=== PATIENT | female | born 1950 | race Caucasian/White ===

== ENCOUNTER 2018-07-23 17:50 | Inpatient (IN) | payer BC, MEDICARE, SELFPAY ==
[2018-07-23] VITALS (10 sets, daily range): BP systolic 149–182; BP diastolic 78–98; PULSE 66–86; RESP 13–23; TEMP 36.2–36.6; O2SAT 97–100; BMI 37.3; BMI 36.8
--- NOTE | 2018-07-23 18:08 | EKG12_ITS ---
Test Reason : GEN ILL Blood Pressure : / mmHG Vent. Rate : 061 BPM Atrial Rate : 061 BPM P-R Int : 134 ms QRS Dur : 090 ms QT Int : 418 ms P-R-T Axes : 008 -27 -06 degrees QTc Int : 420 ms Normal sinus rhythm Moderate voltage criteria for LVH, may be normal variant Borderline ECG Confirmed by HAKEEM ORTEGA, YULY ([id number]), supervising editor trailer SHADE GALLO ([id number]) on 07/26/2018 2:54:46 PM Referred By: MILAN Confirmed By:YULY PALACIO MD
--- NOTE | 2018-07-23 18:08 | CT_ITS ---
STUDY: CT BRAIN WITHOUT CONTRAST REASON FOR EXAM: Female, 67 years old. Difficulty speaking with ringing in ears. RADIATION DOSAGE (If Supplied By Facility): CTDIvol = ( 44.99 ) mGy, DLP = ( 796.11 ) mGycm TECHNIQUE: Transaxial CT imaging of the brain was performed without administration of intravenous contrast material. Multiplanar reformations are submitted for interpretation. Individualized dose optimization techniques were used for this CT. COMPARISON: Prior comparison studies are not available for review at this time. FINDINGS: Normal soft tissue structures. Normal calvarium. There is mild cerebral atrophy with widening of the extra-axial spaces and ventricular dilatation. There are areas of decreased attenuation within the white matter tracts of the supratentorial brain, consistent with microvascular disease changes. Normal basal ganglia and thalami. Normal brainstem. There is mild cerebellar atrophy. There is no intracranial hemorrhage. There is mild atherosclerotic calcification of the intracranial arteries. Normal visualized paranasal sinuses. CT/Brain/Head without Contrast IMPRESSION: 1. Chronic involutional changes of the brain. 2. No CT evidence of acute intracranial hemorrhage. Electronically Signed: Ericka Blum MD at 20:39 EST , Service support ,
--- NOTE | 2018-07-23 18:10 | ED.VISSUMM ---
- ER Visit Summary Date of Service: 07/23/18 Chief Complaint: Trouble with her speech History of Present Illness: The patient is a 67 F past medical history of sciatica. Patient never had a stroke or TIA. Denies any cardiac history. She is speaking on the phone with her son. She states she had trouble putting her words together. Trouble finding words. There was not slurred speech just trouble facing the right words together. She stated this came on suddenly. And has since resolved. It lasted less than 30 minutes. She denies any headache. No recent head trauma. She denies any weakness to her arms or legs. No numbness or tingling. No headache. She is on no blood thinners. She denies having prior symptoms like this before. Physical Examination: Older female no acute distress. Vital signs are stable she is afebrile. H EENT exam atraumatic. There is round reactive light. Extra motions are intact. No palsy. No facial numbness or weakness. Normal smile. No facial droop. Neck nontender. No bruits appreciated. Lungs clear to auscultation bilaterally. Heart regular rate and rhythm rate about 70. Abdomen soft and nontender. Normal bowel sounds no peritoneal signs. She is moving all 4 extremities. They are neurovascularly intact. She has equal symmetrical barn manager strength. Equal symmetrical dorsi and plantar flexion. Fingertip to nose is within normal limits. Neurologically she is awake alert with no focal motor or sensory deficits. Currently an NIH of 0. She has normal speech at the current time. Test Results: Stroke workup. CBC normal. Chemistry normal. Troponin normal. Sinus rhythm rate of 61 with no acute abnormality. Chest x-ray shows a normal cardiac silhouette mediastinum read both by myself and radiologist. CT of the brain I have reviewed and see no acute abnormality. There is no bleed. We are awaiting formal radiology interpretation. Emergency Department Course and Treatment: Patient's initial exam is normal. Her neurological symptoms have resolved. On repeat exam at 2030 p.m. patient is doing well. She has had no recurrent symptoms. Her neurologic exam remains normal. I went over all test results with both her and her significant other at bedside. She is agreeable to admission and further evaluation. Treatment Plan: I will speak to the hospitalist about admission. Disposition: Admission Impression: Acute transient dysarthria (TIA) This note was generated with Dragon dictation software. It may contain incorrect words, spelling, and punctuation that were not noted in review of the chart prior to signing ED Disposition - Plan for ED Patient: Chief Complaint: Neuro S/Sx Referrals: Tenzin Wise MD [Primary Care Provider] -
--- NOTE | 2018-07-23 18:13 | ED.DCSUM_ITS ---
- ER Visit Summary Date of Service: 07/23/18 Chief Complaint: Trouble with her speech History of Present Illness: The patient is a 67 F past medical history of sciatica. Patient never had a stroke or TIA. Denies any cardiac history. She is speaking on the phone with her son. She states she had trouble putting her words together. Trouble finding words. There was not slurred speech just trouble facing the right words together. She stated this came on suddenly. And has since resolved. It lasted less than 30 minutes. She denies any headache. No recent head trauma. She denies any weakness to her arms or legs. No numbness or tingling. No headache. She is on no blood thinners. She denies samuel ving prior symptoms like this before. Physical Examination: Older female no acute distress. Vital signs are stable she is afebrile. H EENT exam atraumatic. There is round reactive light. Extra motions are intact. No palsy. No facial numbness or weakness. Normal smile. No facial droop. Neck nontender. No bruits appreciated. Lungs clear to auscultation bilaterally. Heart regular rate and rhythm rate about 70. Abdomen soft and nontender. Normal bowel sounds no peritoneal signs. She is moving all 4 extremities. They are neurovascularly intact. She has equal symmetrical recruitment internship strength. Equal symmetrical dorsi and plantar flexion. Fingertip to nose is within normal limits. Neurologically she is awake alert with no focal motor or sensory deficits. Currently an NIH of 0. She has normal speech at the current time. Test Results: Stroke workup. CBC normal. Chemistry normal. Troponin normal. Sinus rhythm rate of 61 with no acute abnormality. Chest x-ray shows a normal cardiac silhouette mediastinum read both by myself and radiologist. CT of the brain I have reviewed and see no acute abnormality. There is no bleed. We are awaiting formal radiology interpretation. Emergency Department Course and Treatment: Patient's initial exam is normal. Her neurological symptoms have resolved. On repeat exam at 2030 p.m. patient is doing well. She has had no recurrent symptoms. Her neurologic exam remains normal. I went over all test results with both her and her significant other at bedside. She is agreeable to admission and further evaluation. Treatment Plan: I will speak to the hospitalist about admission. Disposition: Admission Impression: Acute transient dysarthria (TIA) This note was generated with itsDapper dictation software. It may contain incorrect words, spelling, and punctuation that were not noted in review of the chart prior to signing ED Disposition - Plan for ED Patient: Chief Complaint: Neuro S/Sx Referrals: Tenzin Wise MD [Primary Care Provider] -
--- NOTE | 2018-07-23 18:20 | RAD_ITS ---
STUDY: X-RAY CHEST REASON FOR EXAM: Female, 67 years old. Cerebrovascular accident workup. TECHNIQUE: Single frontal view of the chest. COMPARISON: None. FINDINGS: A right subclavian catheter is present and the tip cannot be visualized because of underpenetration. The lungs are hyperexpanded with bullous disease in both apices. There is no demonstrated pleural abnormality. There is borderline cardiomegaly. Normal mediastinum and karen. Normal visualized pulmonary arteries. Normal visualized aortic arch and descending thoracic aorta. Normal visualized thoracic spine. Normal visualized ribs, clavicles, and shoulders. There is no demonstrated abnormality of the visualized soft tissue structures of the upper abdomen. RAD/Chest 1 View IMPRESSION: No active or acute cardiopulmonary disease. Electronically Signed: Eliceo Shane MD at 20:18 EST , Service support ,
[2018-07-23 18:24] LABS: Absolute Lymphocyte Count 2.14 X10^3/ul (0.83-4.51); Absolute Neutrophil Count 3.9 X10^3/uL (2.0-7.7); Basophil# 0.02 X10^3/uL; Basophil% 0.3 % (0-1); Eosinophil# 0.08 X10^3/uL; Eosinophils% 1.2 % (0-5); Hematocrit 40.5 % (37-47); Hemoglobin 13.5 g/dl (12.0-15.0); Lymphocyte # 2.14 X10^3/ul (4.0); Lymphocyte % 32.5 % (19-41); Mean Corp Hgb Conc 33.3 g/gl (32-36); Mean Corpuscular Volume 92.9 fL (81-99); Mean Platelet Vol. 10.9 fl (6.2-12.0); Monocyte% 6.1 % (0-10); Neutrophil # 3.94 X10^3/uL (2.7-7.7); Neutrophil % 59.7 % (47-70); Platelet Count 245 K/mm3 (150-450); RBC Distribution Width CV 13.2 % (11.6-14.6); RBC Distribution Width SD 43.7 fl (35.1-43.9); Red Blood Count 4.36 M/mm3 (4.2-5.4); White Blood Count 6.6 K/mm3 (4.4-11.0)
[2018-07-23 18:27] LABS: POSITIVE COUNT NO; POSITIVE DIFFERENTIAL NO; POSITIVE MORPHOLOGY NO
[2018-07-23 18:40] LABS: Anion Gap 6 (5-15); BUN 21 mg/dL (7-18); Calcium,Total 9.4 mg/dL (8.5-10.1); Chloride 105 mmol/L (98-107); Creatinine, Serum 0.78 mg/dL (0.55-1.02); EST Glomerular Filtration Rate 79 mL/min (>60); Est Glom Filt Rate - Afr Amer 95 mL/min (>60); Estimated Creatinine Clearance 53.09 ml/min; Glucose 93 mg/dL (74-106); Potassium 4.4 mmol/L (3.5-5.1); Sodium Level 139 mmol/L (136-145)
[2018-07-23 19:01] LABS: Bedside Glucose 81 mg/dL (70-110)
[2018-07-23 20:24] LABS: Prothrombin Time (Protime)PT. 12.9 SECONDS (11.7-14.9)
[2018-07-23 20:25] LABS: Partial Thromboplast Time 25.5 Seconds (24.1-36.2)
--- NOTE | 2018-07-23 20:32 | HP.PCM_ITS ---
Problem List (1) Malignant neoplasm of colon Status: Chronic (2) Depressive disorder Status: Chronic (3) Stroke-like episode Status: Acute History of Present Illness Date of Admission: 07/23/18 Chief Complaint: word finding difficulties The patient is a 67 year old F with a significant history of depressive disorder; sciatica; colon cancer status post colectomy; multiple orthopedic surgeries who presented with 45 minutes of word finding difficulty. The patient was talking on the phone with her son who is in [place]. Patient noticed that she was having word finding difficulties and nonsensical talk. This lasted for about 45 minutes. Subsequently patient presented to the emergency department. By the time presented to the emergency department her symptoms has resolved. Patient was particularly scared about her symptoms since her mother from a massive stroke. Also she reports that her ears felt clogged and she had ringing in her ears. Notably family and patient reported that a couple of months ago patient was exposed to fire arms and she developed loss of hearing. Associated with her symptoms was lightheadedness. Past Medical History Past Medical History (Chronic Problems): Chronic Problems Malignant neoplasm of colon (Chronic) HTN (hypertension) (Chronic) Esophageal reflux (Chronic) Type II diabetes mellitus, uncontrolled (Chronic) Depressive disorder (Chronic) Allergies No Known Allergies Allergy (Verified 07/23/18 17:51) Home Medications: Ambulatory Orders Medication Instructions Recorded Ibuprofen [Motrin] 400 mg PO BID 07/23/18 Melatonin 10 mg PO QHS 07/23/18 traZODone [Desyrel] 100 mg PO QHS 07/23/18 Surgical History: colectomy, total knee arthroplasty - Bilateral, - - Right elbow surgery; and right ankle fusion Lives: Spouse/ Significant Other Smoking Status: Former smoker Alcohol: Occasional - She drinks about 2 glasses of wine every day; she denies that she would go into withdrawal if she does not drink. - *Family History Maternal Family History: Family History (Last Updated 07/23/18 @ 21:18 by Morro Christina MD) Mother CVA (cerebral vascular accident) Father Hypertension Prostate cancer Review of Systems Constitutional: Denies: Chills, Fever, Weight Change HEENT: Denies: Head Aches, Sinus Congestion, Sinus Drainage Cardiovascular: Denies: Chest Pain, Palpitations Respiratory: Denies: Cough, Shortness of breath at rest, Sputum production Gastrointestinal: Denies: Abdominal Pain, Nausea, Vomiting Genitourinary: Denies: Dysuria Musculoskeletal: Reports: Leg Pain - Chronic from sciatica.. Denies: Joint Pain, Joint Tenderness Skin: Denies: Rash, Wounds Neurological: Denies: Numbness, Tingling, Focal weakness Psychiatric: Denies: Anxiety, Depression, Homicidal Ideations, Suicidal Ideatio ns Hematologic/ Lymphatic: Denies: Easy Bruising, Easy Bleeding VTE Information - Inpt Only VTE Present on Admission: No VTE Mechan Device Prophylaxis: None VTE Pharm Prophylaxis ordered?: Yes Patient Problems: Active and Suspected Problems Stroke-like episode (Acute) - Physical Exam General: Alert, Oriented x3, Cooperative HEENT: Atraumatic, PERRLA, EOMI, Normocephalic Neck: Supple, No JVD, Negative Carotid Bruits Lungs: Clear to auscultation, Normal air movement Cardiovascular: Regular rate, No murmurs Abdomen: Bowel Sounds Present, Soft, Non Tender Extremities: No edema, Capillary Refill Less than 3 Seconds Skin: No rashes, No breakdown Musculoskeletal: No Tenderness to Palpation of Joints or Extremities Neurological: Cranial nerves II-XII grossly intact, Deep Tendon Reflexes 2+/4 and Symmetrical, Neuro grossly intact, - - Equal handgrips bilateral.Patient declined strength testing of bilateral hands stating that her arms are weak because of multiple blood draws. Psych/Mental Status: Normal Affect, Appropriate Vital Signs Temp Pulse Resp BP Pulse Ox 97.1 F L 66 23 H 166/87 H 98 07/23/18 17:51 07/23/18 20:19 07/23/18 20:19 07/23/18 20:19 07/23/18 20:19 Oxygen Delivery Method Room Air Weight: 108.1 kg Body Mass Index (BMI) 37.3 Finger Stick Blood Glucose 81 Laboratory Tests Past 24 Hrs 07/23/18 07/23/18 07/23/18 18:10 18:10 18:10 WBC 6.6 RBC 4.36 Hgb 13.5 Hct 40.5 MCV 92.9 MCH 31.0 MCHC 33.3 RDW 13.2 RDW Differential 43.7 Plt Count 245 MPV 10.9 Immature Gran % (Auto) 0.200 Neut % (Auto) 59.7 Lymph % (Auto) 32.5 [place] % (Auto) 6.1 Eos % (Auto) 1.2 Baso % (Auto) 0.3 Absolute Neuts (auto) 3.9 Absolute Lymphs (auto) 2.14 Total Counted Not Reportable PT Cancelled INR Cancelled APTT Cancelled Sodium 139 Potassium 4.4 Chloride 105 Carbon Dioxide 28.0 Anion Gap 6 BUN 21 H Creatinine 0.78 Estim Creat Clear Calc 53.09 Est GFR (MDRD) Af Amer 95 Est GFR (MDRD) Non-Af 79 BUN/Creatinine Ratio 27.0 H Glucose 93 Calcium 9.4 Troponin I < 0.015 07/23/18 07/23/18 19:10 20:10 WBC RBC Hgb Hct MCV MCH MCHC RDW RDW Differential Plt Count MPV Immature Gran % (Auto) Neut % (Auto) Lymph % (Auto) [place] % (Auto) Eos % (Auto) Baso % (Auto) Absolute Neuts (auto) Absolute Lymphs (auto) Total Counted PT Cancelled 12.9 INR Cancelled 1.0 APTT Cancelled 25.5 Sodium Potassium Chloride Carbon Dioxide Anion Gap BUN Creatinine Estim Creat Clear Calc Est GFR (MDRD) Af Amer Est GFR (MDRD) Non-Af BUN/Creatinine Ratio Glucose Calcium Troponin I POC Glucose 07/23/18 18:52 POC Glucose 81 Assessment/Plan All Active Problems Stroke-like episode (Acute) The patient is a 67 year old F with a significant history of depressive disorder; sciatica; colon cancer status post colectomy; multiple orthopedic surgeries who presented with 45 minutes of word finding difficulty; with associated lightheadedness concerning for transient ischemic attack.. Strokelike symptoms At the emergency department her symptoms had resolved. NINDS NIH Scale was 0 CT of the head independently reviewed was unremarkable Continue NINDS NIH Scale per protocol Notably her blood pressure was elevated. Patient denies any history of hypertension and diabetes although in the EMR there is hypertension and diabetes listed on her profile. Physical therapy, occupational therapy and speech therapy to work with patient. N.p.o. until bedside swallow eval. Daily aspirin. High intensity statin Lipid profile and A1c ordered. Permissive hypertension. Control heart rate of labetalol for systolic blood pressure of more than 220 or diastolic blood pressure of more than 120. Permissive HTN for 24 hrs, care home goal BP < 120/80 mmHg. Since it is a Wednesday and MRI would not be readily available a carotid ultrasound of neck ordered. Echocardiogram ordered. Elevated blood pressure without diagnosis of hypertension. Patient denies any high blood pressure. Trend blood pressure Will permit permissive hypertension as above. Hearing loss Patient encouraged to follow-up outpatient with PCP and ENT. Insomnia Melatonin Continued Depression Trazodone continued DVT prophylaxis Subcutaneous heparin. Code Visit OBSV E&M: 60457 Initial observation care L3
--- NOTE | 2018-07-23 21:22 | ECHOD_ITS ---
Reason For Study: TIA/CVA Procedure This was a 2D Doppler, Color Flow transthoracic echocardiogram. Myocardial strain analysis was performed in this exam to aid in the assessment of cardiac function. Exam performed portable in patient room. Left Ventricle Normal LV size. Moderate concentric left ventricular hypertrophy. The estimated ejection fraction is 70 %. Stage 1 diastolic dysfunction. No regional wall motion abnormalities noted. Right Ventricle Normal RV size. Normal systolic function. Atria The left atrium is mildly enlarged. The right atrium is mildly enlarged. Mitral Valve There is mild to moderate mitral annular calcification. Tricuspid Valve Normal tricuspid valve. Mild (1+) tricuspid valve insufficiency. Pulmonary artery systolic pressure is 30 mmHg. Aortic Valve Trisinus/trileaflet aortic valve. Moderate focal aortic valve calcification. Peak aortic valve gradient 30 mmHg. Mean aortic valve gradient 17 mmHg. Mild aortic stenosis. Calculated aortic valve area (continuity equation) is 1.5 cm2. Pulmonic Valve Normal pulmonic valve. Great Vessels Normal aortic root. The pulmonary artery is normal size. Normal inferior vena cava. Pericardium/Pleural No pericardial effusion. Medication Performed a rapid injection of agitated mix of 9 cc saline and 1cc air to assess for atrial septal defect. MMode/2D Measurements & Calculations LVIDd: 4.5 cm IVSd: 1.5 cm LVOT diam: 2.1 cm LVIDs: 3.0 cm LVPWd: 1.4 cm RVDd: 3.7 cm FS: 33.5 % LVOT area: 3.5 cm2 Ao root diam: 3.5 cm LAV(MOD-bp): 63.6 ml LVAd ap4: 21.8 cm2 LAV(MOD-bp) Indexed: 29.3 ml/m2 EDV(MOD-sp4): 56.9 ml LAV(MOD-sp2): 53.7 ml EDV(sp4-el): 59.6 ml LAV(MOD-sp4): 71.6 ml LVAs ap4: 11.5 cm2 ESV(MOD-sp4): 20.0 ml ESV(sp4-el): 18.0 ml EF(MOD-sp4): 64.8 % EF(sp4-el): 69.7 % SV(MOD-sp4): 36.8 ml SV(sp4-el): 41.6 ml LA A4 area: 23.4 cm2 LA dimension(2D): 4.7 cm RA A4 area: 13.0 cm2 Doppler Measurements & Calculations MV E max luis alberto: 81.4 cm/sec Lat Peak E' Luis Alberto: 5.6 cm/sec Med Peak E' Luis Alberto: 4.9 cm/sec MV A max luis alberto: 94.4 cm/sec E/E' lat: 14.7 E/E' med: 16.6 MV E/A: 0.86 Ao V2 max: 275.5 cm/sec LV V1 max: 118.2 cm/sec SV(LVOT): 103.5 ml Ao max P.4 mmHg LV V1 max P.6 mmHg Ao V2 mean: 196.3 cm/sec LV V1 mean P.3 mmHg Ao mean P.8 mmHg LV V1 mean: 87.1 cm/sec Ao V2 VTI: 68.2 cm LV V1 VTI: 29.2 cm KEVIN(I,D): 1.5 cm2 KEVIN(V,D): 1.5 cm2 PA V2 max: 89.4 cm/sec TR max luis alberto: 252.1 cm/sec TR max P.4 mmHg Interpretation Summary Normal LV size. Moderate concentric left ventricular hypertrophy. The estimated ejection fraction is 70 %. Stage 1 diastolic dysfunction. Moderate focal aortic valve calcification. Calculated aortic valve area (continuity equation) is 1.5 cm2. Mean aortic valve gradient 17 mmHg. Ordering Physician: Morro Christina Referring Physician: Tenzin Wise Performed By: Rachel Dumont, ANABEL, RVT
[2018-07-23 21:47] LABS: Hemoglobin A1c 5.4 % (4.2-6.3)
[2018-07-23] MEDS: Atorvastatin Calcium 80 MG Tablet PO (23:25)
--- NOTE | 2018-07-23 23:44 | NURSING ---
Pt wants to wait to take most night meds.
[2018-07-24] VITALS (13 sets, daily range): BP systolic 139–153; BP diastolic 63–91; PULSE 62–79; RESP 16–18; TEMP 36.1–36.9; O2SAT 92–98
[2018-07-24] MEDS: Ibuprofen 600 MG Tablet PO ×3 (00:01→16:47)
[2018-07-24] MEDS: MELATONIN 10 MG TABLET PO ×2 (00:27→23:35)
[2018-07-24] MEDS: traZODone 100 MG Tablet PO ×2 (00:27→23:35)
[2018-07-24 06:07] LABS: Cholesterol 218 mg/dL (200); High Density Lipoprotein 55 mg/dL; Triglycerides 203 mg/dL; Very Low Density Lipoprotein 41 mg/dL (5-40)
--- NOTE | 2018-07-24 07:40 | PN_ITS ---
Patient Problems: Active and Suspected Problems Stroke-like episode (Acute) Vitals/I&O's: Vital Signs Temp Pulse Resp BP Pulse Ox 98.4 F 66 16 139/63 H 95 07/24/18 04:30 07/24/18 07:03 07/24/18 04:30 07/24/18 04:30 07/24/18 04:30 Oxygen Delivery Method Room Air Weight: 106.3 kg Body Mass Index (BMI) 36.8 Finger Stick Blood Glucose 81 Intake and Output for Last 24 Hours 07/22/18 07/23/18 07/24/18 23:59 23:59 23:59 Intake Total 360 / 360 Balance 360 / 360 Laboratory Results 07/23/18 18:10: WBC 6.6, RBC 4.36, Hgb 13.5, Hct 40.5, MCV 92.9, MCH 31.0, MCHC 33.3, RDW 13.2, RDW Differential 43.7, Plt Count 245, MPV 10.9, Immature Gran % (Auto) 0.200, Neut % (Auto) 59.7, Lymph % (Auto) 32.5, [place] % (Auto) 6.1, Eos % (Auto) 1.2, Baso % (Auto) 0.3, Absolute Neuts (auto) 3.9, Absolute Lymphs (auto) 2.14, Total Counted Not Reportable 07/23/18 18:10: PT Cancelled, INR Cancelled, APTT Cancelled 07/23/18 18:10: Sodium 139, Potassium 4.4, Chloride 105, Carbon Dioxide 28.0, Anion Gap 6, BUN 21 H, Creatinine 0.78, Estim Creat Clear Calc 53.09, Est GFR (MDRD) Af Amer 95, Est GFR (MDRD) Non-Af 79, BUN/Creatinine Ratio 27.0 H, Glucose 93, Calcium 9.4, Troponin I < 0.015 07/23/18 18:10: Hemoglobin A1c 5.4 07/23/18 18:52: POC Glucose 81 07/23/18 19:10: PT Cancelled, INR Cancelled, APTT Cancelled 07/23/18 20:10: PT 12.9, INR 1.0, APTT 25.5 07/24/18 05:20: Triglycerides 203 H, Cholesterol 218 H, LDL Cholesterol 122, VLDL Cholesterol 41 H, HDL Cholesterol 55 Current Medications Acetaminophen (Tylenol) 650 mg PO Q4H PRN PRN PRN Reason: Headache/Temp>99F Acetaminophen (Tylenol) 650 mg RECTAL Q4H PRN PRN PRN Reason: Headache/Temp>99F Acetaminophen (Tylenol Liquid) 650 mg NG Q4H PRN PRN PRN Reason: Headache/Temp>99F Aspirin (Aspirin, Baby) 81 mg PO DAILY@0800 [facility] Atorvastatin Calcium (Lipitor) 80 mg PO QHS [facility] Last Admin: 07/23/18 23:25 Dose: 80 mg Heparin Sodium (Porcine) (Heparin Na) 5,000 unit SC Q8 [facility] Last Admin: 07/24/18 04:37 Dose: Not Given Ibuprofen (Motrin) 600 mg PO Q8H PRN PRN PRN Reason: MILD PAIN (1-310) Last Admin: 07/24/18 00:01 Dose: 600 mg Labetalol HCl (Trandate) 10 mg IV Q10M PRN PRN PRN Reason: MAINTAIN BP < 220/120 Magnesium Hydroxide (Milk Of Magnesia) 30 ml PO DAILY PRN PRN Reason: Constipation [facility] Last Admin: 07/24/18 00:27 Dose: 10 mg Sodium Chloride () 5 - 15 ml IV UD PRN PRN Reason: SALINE FLUSH Trazodone HCl (Desyrel) 100 mg PO QHS [facility] Last Admin: 07/24/18 00:27 Dose: 100 mg Medical Necessity - Tobacco Use Smoking Status: Former smoker Assessment/Plan All Active Problems Stroke-like episode (Acute)
[2018-07-24] MEDS: Aspirin 81 MG TAB.CHEW PO (08:50)
--- NOTE | 2018-07-24 09:36 | MRI_ITS ---
STUDY: MRI BRAIN WITHOUT CONTRAST REASON FOR EXAM: Female, 67 years old. Word finding difficulty. TECHNIQUE: Standardized multiplanar fat and water weighted pulse sequences were obtained. COMPARISON: CT of the head dated July 23, 2018. FINDINGS: There is mild cerebral atrophy with widening of the extra-axial spaces and ventricular dilatation. There are a limited number of small white matter hyperintensities, distributed throughout the deep white matter tracts of the cerebral hemispheres, consistent with mild chronic white matter ischemic changes. There is confluent periventricular hyperintensity cloaking the lateral ventricles, consistent with periventricular leukoaraiosis. There is no evidence for recent intracranial ischemia or other cause of cytotoxic edema on diffusion weighted imaging (DWI). Normal T2* images of the brain without demonstrated susceptibility artifact. There is no demonstrated hemosiderin stain. There are prominent perivascular spaces (PVS) involving the basal ganglia. Normal thalami. There is no extra-axial fluid accumulation. Normal flow voids within the major intracranial circulation suggesting patency by spin echo criteria. Normal sella turcica, pituitary gland, infundibular stalk, optic chiasm and hypothalamus. Normal tectal plate and pineal gland. Normal midbrain, ishan and medulla. Normal cerebellum. There are large basal cisterns. Normal bilateral temporal bones. Normal bilateral internal auditory canals. No demonstrated orbital abnormality, within the constraints of a routine brain study. There is mild mucoperiosteal thickening left maxillary sinus. Normal calvarium and skull base. Normal visualized soft tissue structures. Normal visualized upper cervical spine. MRI/Brain without Contrast IMPRESSION: 1. Involutional changes of the brain, as described above. 2. No MR evidence for acute infarct. Electronically Signed: Ericka Blum MD at 3:28 EST , Service support ,
--- NOTE | 2018-07-24 09:36 | MRI_ITS ---
STUDY: MRA OF THE HEAD WITHOUT CONTRAST REASON FOR EXAM: Female, 67 years old. Finding difficulty for one day. TECHNIQUE: 3-D upcc-ee-wfinwz (TOF) imaging was performed with MIPs. The study was performed unenhanced. COMPARISON: Prior comparison studies are not available for review at this time. FINDINGS: Normal bilateral petrous carotid arteries. Normal right cavernous carotid artery with a normal supraclinoid bifurcation. Normal left cavernous carotid artery with a normal supraclinoid bifurcation. Normal right A1 segments of the anterior cerebral artery. Normal left A1 segments of the anterior cerebral artery. Normal intact anterior communicating artery (ACOM). Normal bilateral A2 segments of the anterior cerebral arteries. Normal right M1 and M2 segments of the middle cerebral arteries, with a normal M1 bifurcation. Normal left M1 and M2 segments of the middle cerebral arteries, with a normal M1 bifurcation. Normal right posterior communicating artery (PCOM). Normal left posterior communicating artery (PCOM). Normal bilateral vertebral arteries. Normal basilar artery with a normal basilar bifurcation. The visualized bilateral superior cerebellar (SCA) arteries are normal. Normal bilateral P1, P2 and visualized P3 segments of the posterior cerebral arteries. There is no demonstrated aneurysm of the [place]. There is no major vessel occlusion or hemodynamically significant stenosis. There are mild involutional changes of the brain. MRI/MRA Head ONLY without Contrast IMPRESSION: No MRA evidence for hemodynamically significant stenosis or aneurysm. Electronically Signed: Ericka Blum MD at 0:13 EST , Service support ,
--- NOTE | 2018-07-24 09:36 | MRI_ITS ---
STUDY: MRA NECK WITH AND WITHOUT CONTRAST REASON FOR EXAM: Female, 67 years old. Word finding difficulty for one day. TECHNIQUE: 3-D duhm-ie-nodejg (TOF) imaging was performed in an 1.5 T MRI scanner. 10 ml of Gadavist was administered for the contrast enhanced images. Several images but limited by patient motion. COMPARISON: Prior comparable comparison studies are not available for review at this time. FINDINGS: RIGHT CAROTID ARTERIES: There is limited evaluation of the origin of the right common carotid artery. Right common carotid artery is mildly tortuous. There is mild atherosclerotic plaque formation with minimal narrowing of the right carotid bulb. Normal origin of the right internal carotid (ICA) artery without a hemodynamically significant stenosis. Normal visualized cervical portion of the right internal carotid artery. Normal origin of the right external carotid artery (ECA). LEFT CAROTID ARTERIES: There is atherosclerotic tortuous elongation of the left common carotid artery. There is mild atherosclerotic plaque formation with minimal narrowing of the left carotid bulb. Normal origin of the left internal carotid (ICA) artery without a hemodynamically significant stenosis. There is atherosclerotic tortuous elongation of the cervical portion of the left internal carotid artery. Normal origin of the left external carotid artery (ECA). VERTEBRAL ARTERIES: Normal antegrade flow within the bilateral vertebral artery without a hemodynamically significant stenosis. MRI/MRA Neck WITH and W/O Contrast IMPRESSION: 1. No MRA evidence for hemodynamically significant stenosis. 2. Limited visualization origin of the right common carotid artery. Electronically Signed: Ericka Blum MD at 2:54 EST , Service support ,
--- NOTE | 2018-07-24 15:08 | PCM.PROGNOTE ---
<Venkat Mata - Last Filed: 07/24/18 15:08> Patient Problems: Active and Suspected Problems Stroke-like episode (Acute) Subjective: Pt came to the ER after experiencing a 30-45 minute episode of ear fullness and difficulty speaking. She knew what she wanted to say but could not form the words correctly, and they came out not making sense. She had no vision changes, focal weakness, numbness or tingling. Her symptoms are completely resolved. She states her heart murmur was discovered about 2 months prior and that she was told it did not need further work up. - Physical Exam General: Alert, Oriented x3, Cooperative HEENT: Atraumatic, PERRLA, EOMI, Normocephalic Neck: Supple, No JVD, Negative Carotid Bruits Lungs: Clear to auscultation, Normal air movement Cardiovascular: Regular rate, Murmur Abdomen: Bowel Sounds Present, Soft, Non Tender Extremities: No edema, Capillary Refill Less than 3 Seconds Skin: No rashes, No breakdown Musculoskeletal: No Tenderness to Palpation of Joints or Extremities Neurological: Cranial nerves II-XII grossly intact Psych/Mental Status: Normal Affect, Appropriate, Alert and oriented to time, place, person, mood and affect Vital Signs Temp Pulse Resp BP Pulse Ox 98.1 F 70 16 146/74 H 97 07/24/18 12:03 07/24/18 12:03 07/24/18 12:03 07/24/18 12:03 07/24/18 12:03 Oxygen Delivery Method Room Air Weight: 234 lb 5.622 oz Body Mass Index (BMI) 36.8 Finger Stick Blood Glucose 81 Intake and Output for Last 24 Hours 07/22/18 07/23/18 07/24/18 23:59 23:59 23:59 Intake Total 360 / 360 Balance 360 / 360 Laboratory Tests Past 24 Hrs 07/23/18 07/23/18 07/23/18 18:10 18:10 18:10 WBC 6.6 RBC 4.36 Hgb 13.5 Hct 40.5 MCV 92.9 MCH 31.0 MCHC 33.3 RDW 13.2 RDW Differential 43.7 Plt Count 245 MPV 10.9 Immature Gran % (Auto) 0.200 Neut % (Auto) 59.7 Lymph % (Auto) 32.5 [place] % (Auto) 6.1 Eos % (Auto) 1.2 Baso % (Auto) 0.3 Absolute Neuts (auto) 3.9 Absolute Lymphs (auto) 2.14 Total Counted Not Reportable PT Cancelled INR Cancelled APTT Cancelled Sodium 139 Potassium 4.4 Chloride 105 Carbon Dioxide 28.0 Anion Gap 6 BUN 21 H Creatinine 0.78 Estim Creat Clear Calc 53.09 Est GFR (MDRD) Af Amer 95 Est GFR (MDRD) Non-Af 79 BUN/Creatinine Ratio 27.0 H Glucose 93 Hemoglobin A1c Calcium 9.4 Troponin I < 0.015 Triglycerides Cholesterol LDL Cholesterol VLDL Cholesterol HDL Cholesterol 07/23/18 07/23/18 07/23/18 18:10 19:10 20:10 WBC RBC Hgb Hct MCV MCH MCHC RDW RDW Differential Plt Count MPV Immature Gran % (Auto) Neut % (Auto) Lymph % (Auto) [place] % (Auto) Eos % (Auto) Baso % (Auto) Absolute Neuts (auto) Absolute Lymphs (auto) Total Counted PT Cancelled 12.9 INR Cancelled 1.0 APTT Cancelled 25.5 Sodium Potassium Chloride Carbon Dioxide Anion Gap BUN Creatinine Estim Creat Clear Calc Est GFR (MDRD) Af Amer Est GFR (MDRD) Non-Af BUN/Creatinine Ratio Glucose Hemoglobin A1c 5.4 Calcium Troponin I Triglycerides Cholesterol LDL Cholesterol VLDL Cholesterol HDL Cholesterol 07/24/18 05:20 WBC RBC Hgb Hct MCV MCH MCHC RDW RDW Differential Plt Count MPV Immature Gran % (Auto) Neut % (Auto) Lymph % (Auto) [place] % (Auto) Eos % (Auto) Baso % (Auto) Absolute Neuts (auto) Absolute Lymphs (auto) Total Counted PT INR APTT Sodium Potassium Chloride Carbon Dioxide Anion Gap BUN Creatinine Estim Creat Clear Calc Est GFR (MDRD) Af Amer Est GFR (MDRD) Non-Af BUN/Creatinine Ratio Glucose Hemoglobin A1c Calcium Troponin I Triglycerides 203 H Cholesterol 218 H LDL Cholesterol 122 VLDL Cholesterol 41 H HDL Cholesterol 55 POC Glucose 07/23/18 18:52 POC Glucose 81 Medical Necessity - Tobacco Use Smoking Status: Former smoker Assessment/Plan All Active Problems Stroke-like episode (Acute) 1. TIA - dysarthria resolved. CT neg for acute process, + chronic involutional changes. MRI brain and MRA head and neck pending. No prior hx stroke. Mother recently from stroke. No headache. Echo will be obtained tomorrow. Continue asa and statin 2. Murmur - 3/6 systolic best over the LSB - echo in AM. Found about 2 months prior per hx. 3. HTN - HCTZ held for permissive htn 4. hx colon cancer with prior colectomy. DVT ppx: Heparin DC planning: mri, echo pending. This patient was seen by Venkat Mata PA-C under the supervision of Dr. Dior <Diana Dior - Last Filed: 07/25/18 06:26> - Physical Exam Vital Signs Temp Pulse Resp BP Pulse Ox 98.1 F 71 18 144/60 H 97 07/25/18 04:00 07/25/18 04:00 07/25/18 04:00 07/25/18 04:00 07/25/18 04:00 Oxygen Delivery Method Room Air Weight: 106.3 kg Body Mass Index (BMI) 36.8 Finger Stick Blood Glucose 81 Intake and Output for Last 24 Hours 07/23/18 07/24/18 07/25/18 23:59 23:59 23:59 Intake Total 840 / 840 700 / 700 Balance 840 / 840 700 / 700 Assessment/Plan Patient was seen and examined. I agree with the above documentation as detailed by physician assistant brand manager, Venkat Mata. 67 y/o female with PMHx of hypertension who comes in with dysarthria. Patient's dysarthria is resolved. MRI head/MRA head and neck pending as well as 2d-echo Vitals appear stable. Will continue with aspirin and statin Code Visit Inpatient E&M: 78861 Subs Hosp L2
[2018-07-24] MEDS: Atorvastatin Calcium 80 MG Tablet PO (21:38)
[2018-07-24] MEDS: Heparin Injection (Vial) 5,000 UNIT/ML VIAL 5000 UNIT SC (21:42)
--- NOTE | 2018-07-24 22:00 | NURSING ---
Pt requesting to have meds around 23:30.
[2018-07-24] MEDS: Famotidine 20 MG Tablet PO (23:35)
[2018-07-25] VITALS (8 sets, daily range): BP systolic 134–160; BP diastolic 60–80; PULSE 62–86; RESP 16–18; TEMP 36.3–36.7; O2SAT 95–97; BMI 36.8
[2018-07-25] MEDS: Ibuprofen 600 MG Tablet PO (03:15)
[2018-07-25] MEDS: 0.9% NaCl Peripheral Flush Adult/Peds IV (03:19)
[2018-07-25] MEDS: Heparin Injection (Vial) 5,000 UNIT/ML VIAL 5000 UNIT SC (05:20)
[2018-07-25] MEDS: Famotidine 20 MG Tablet PO (08:20)
[2018-07-25] MEDS: Aspirin 81 MG TAB.CHEW PO (08:20)
--- NOTE | 2018-07-25 11:23 | CASEMGMT ---
DANYA FERNANDO assessment: Face to Face with patient for initial transition planning/care coordination assessment. RN ABDULLAHI introduced self and role at [facility], pt voices understanding and consents to assessment at this time. Pt is sitting up in bed in no distress at this time. Pt is A/Ox4 at this time and answers all questions appropriately at this time. Pt speaks clearly and has no deficits at this time. Care providers, pharmacy, and demographics verified/updated at this time. PCP: Billie Specialists: armond Flynn in [facility] Pharmacy: [facility] [place] Insurance: SAVANNAH Alfonso Prescription Benefit: Naty Living Will/HPOA: Pt does has HPOA on file at [facility] but does not have LW but is interested in info at this time. Pt states , Kevin Yoon, is HPOA. Pt provided with LW paperwork and [employer] pamphlet at this time. Pt voices no further questions at this time. LNOK: Kevin Yoon, ; Fatmata Yoon, mother in law Living Arrangements: Pt states lives with in 2 story home with bedroom on 2nd floor and states no transportation concerns at this time. Pt states has bilat rails on stairs to 2nd story. Pt states no concerns at this time. Transportation: Pt states drives self and states no transportation concerns at this time. DME/HHC: Pt states has a cane at home, if needed, and states interest in info on medical alert button at this time. Pt states no need for any further DME at this time. Pt provided with medical alert info at this time. Pt states no hx of SNF in the past but did have HHC at some point.. Pt states no concerns with going home at time of discharge. 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 Pt states does not smoke but does drink 1-2 glasses wine each night. Pt states no further concerns/needs at this time. Advised pt to ask for CM if any further questions/concerns/needs arise, voices understanding. Plan: [place] DANYA FERNANDO
--- NOTE | 2018-07-25 11:25 | DCINST_ITS ---
- Discharge Diagnoses Current Active Problems: Current Active and Chronic Problems Stroke-like episode (Acute) You will use the following diet at home:: Cardiac Your food should be the consistency of: Regular Your liquids should be the consistency of: Regular/Thin Discharge Activity: Return to Normal Activity Allergies/Adverse Reactions: Allergies No Known Allergies Allergy (Verified 07/23/18 21:44) Medications to take at Discharge Hydrochlorothiazide [Hctz] 25 mg PO DAILY 07/23/18 Ibuprofen [Motrin] 400 mg PO BID 07/23/18 Melatonin 20 mg PO QHS 07/23/18 traZODone [Desyrel] 100 mg PO QHS 07/23/18 Aspirin [Aspirin, Baby] 81 mg PO DAILY@0800 tab.chew 07/25/18 Atorvastatin Calcium [Lipitor] 40 mg PO QHS #30 tab 07/25/18 The following prescriptions were given: Atorvastatin Calcium [Lipitor] 40 mg PO QHS #30 tab Primary Care Physician: Tenzin Wise MD [Primary Care Provider] - Please follow up with your Primary Care Physician in: 1-2 weeks Test Results: Test results from this visit will be discussed in further detail at your follow- up appointment, if applicable. Please Follow Up With: Javon Beavers MD When: 3-4 weeks Proposed Discharge Date: 07/25/18
--- NOTE | 2018-07-25 13:55 | PCM.DC.SUM ---
<Venkat Mata - Last Filed: 07/25/18 13:55> Discharge Date and Diagnosis Date of Admission: 07/23/18 Date of Discharge: 07/25/18 - Primary Discharge Diagnosis TIA HTN Hx Colon cancer s/p colectomy Moderate aortic calcification with mild aortic stenosis 1+ TVI - Secondary Discharge Diagnosis Chronic Problems Malignant neoplasm of colon (Chronic) HTN (hypertension) (Chronic) Esophageal reflux (Chronic) Type II diabetes mellitus, uncontrolled (Chronic) Depressive disorder (Chronic) Hospital Course and Treatment Imaging Results: CT/Brain/Head without Contrast IMPRESSION: 1. Chronic involutional changes of the brain. 2. No CT evidence of acute intracranial hemorrhage. RAD/Chest 1 View IMPRESSION: No active or acute cardiopulmonary disease. Echo: Interpretation Summary Normal LV size. Moderate concentric left ventricular hypertrophy. The estimated ejection fraction is 70 %. Stage 1 diastolic dysfunction. Moderate focal aortic valve calcification. Calculated aortic valve area (continuity equation) is 1.5 cm2. Mean aortic valve gradient 17 mmHg. MRI/Brain without Contrast IMPRESSION: 1. Involutional changes of the brain, as described above. 2. No MR evidence for acute infarct. MRI/MRA Head ONLY without Contrast IMPRESSION: No MRA evidence for hemodynamically significant stenosis or aneurysm. MRI/MRA Neck WITH and W/O Contrast IMPRESSION: 1. No MRA evidence for hemodynamically significant stenosis. 2. Limited visualization origin of the right common carotid artery. Operations: None Procedures: 2-D Echocardiogram Summary of Care Provided: Hospital course: The patient is a 67 year old F with pmhx as above who presented to the ER with c/o 30-45 minute episode of not being able to speak correctly while on the phone with her son. She knew what she wanted to say but it did not make sense when she spoke. It spontaneously resolved. She came to the ER with concern for stroke as her mother recently of stroke. She had a ct brain which was negative. She had no symptoms by the time she was in the ER. She was admitted to PCU on tele with concern for stroke / TIA. MRI/A were negative. Echo was as above. She had no events on tele. She was placed on aspirin and statin. She had no further episodes. She was discharged home in stable condition and advised to see her PCP in 1-2 weeks and neuro in 3-4 weeks. This patient was seen by Venkat Mata PA-C under the supervision of Doctor Jovanna. [] - Physical Exam General: Alert, Oriented x3, Cooperative HEENT: Atraumatic, PERRLA, EOMI, Normocephalic Neck: Supple, No JVD, Negative Carotid Bruits Lungs: Clear to auscultation, Normal air movement Cardiovascular: Regular rate, No murmurs Abdomen: Bowel Sounds Present, Soft, Non Tender Extremities: No edema, Capillary Refill Less than 3 Seconds Skin: No rashes, No breakdown Musculoskeletal: No Tenderness to Palpation of Joints or Extremities Neurological: Cranial nerves II-XII grossly intact Psych/Mental Status: Normal Affect, Appropriate, Alert and oriented to time, place, person, mood and affect Vital Signs Temp Pulse Resp BP Pulse Ox 97.8 F 86 17 144/65 H 97 07/25/18 11:38 07/25/18 11:38 07/25/18 11:38 07/25/18 11:38 07/25/18 11:38 Oxygen Delivery Method Room Air Weight: 234 lb 5.622 oz Body Mass Index (BMI) 36.8 Finger Stick Blood Glucose 81 Intake and Output for Last 24 Hours 07/23/18 07/24/18 07/25/18 23:59 23:59 23:59 Intake Total 840 / 840 1500 / 1500 Balance 840 / 840 1500 / 1500 Discharge Diet: Low fat/ Low Cholesterol, 2000 mg Sodium Diet Discharge Activity: Return to Normal Activity Home Medications: Medications to take at Discharge Hydrochlorothiazide [Hctz] 25 mg PO DAILY 07/23/18 Ibuprofen [Motrin] 400 mg PO BID 07/23/18 Melatonin 20 mg PO QHS 07/23/18 traZODone [Desyrel] 100 mg PO QHS 07/23/18 Aspirin [Aspirin, Baby] 81 mg PO DAILY@0800 tab.chew 07/25/18 Atorvastatin Calcium [Lipitor] 40 mg PO QHS #30 tab 07/25/18 Following Prescrptions Were Given to Patient: Atorvastatin Calcium [Lipitor] 40 mg PO QHS #30 tab Primary Care Physician: Tenzin Wise MD [Primary Care Provider] - Please follow up with your Primary Care Physician in: 1-2 weeks Please Follow Up With: Javon eBavers MD When: 3-4 weeks Please Follow Up With: Tenzin Wise MD Disposition: Home Minutes spent on discharge:: 35 Patient Condition:: Stable Medical Necessity - Tobacco Use Smoking Status: Former smoker Meaningful Use Info Meaningful Use Diagnoses (Choose all that apply): None applicable <Tenzin Nugent - Last Filed: 07/25/18 14:11> Discharge Date and Diagnosis - Secondary Discharge Diagnosis Chronic Problems Malignant neoplasm of colon (Chronic) HTN (hypertension) (Chronic) Esophageal reflux (Chronic) Type II diabetes mellitus, uncontrolled (Chronic) Depressive disorder (Chronic) Hospital Course and Treatment Summary of Care Provided: This patient was seen in conjunction with Venkat Mata PA-C . I have independently interviewed and examined the patient and reviewed pertinent historical, laboratory, and other data. Please refer to Venkat Mata PA-C note for details of this patient's presentation, findings, and recommendations. I have reviewed Venkat Mata PA-C note and concur with documented findings. In brief, patient is a 67-year-old lady who presented with transient aphasia lasting 30-45 minutes. An assessment of possible transient ischemic attack was made admitted to dated bed for subsequent evaluation Hospital course as elicited above - Physical Exam Vital Signs Temp Pulse Resp BP Pulse Ox 97.8 F 86 17 144/65 H 97 07/25/18 11:38 07/25/18 11:38 07/25/18 11:38 07/25/18 11:38 07/25/18 11:38 Oxygen Delivery Method Room Air Weight: 106.3 kg Body Mass Index (BMI) 36.8 Finger Stick Blood Glucose 81 Intake and Output for Last 24 Hours 07/23/18 07/24/18 07/25/18 23:59 23:59 23:59 Intake Total 840 / 840 1500 / 1500 Balance 840 / 840 1500 / 1500 Code Visit OBSV E&M: 78770 Observation care discharge
--- NOTE | 2018-07-25 14:01 | DS.PCM_ITS ---
<Venkat Mata - Last Filed: 07/25/18 13:55> Discharge Date and Diagnosis Date of Admission: 07/23/18 Date of Discharge: 07/25/18 - Primary Discharge Diagnosis TIA HTN Hx Colon cancer s/p colectomy Moderate aortic calcification with mild aortic stenosis 1+ TVI - Secondary Discharge Diagnosis Chronic Problems Malignant neoplasm of colon (Chronic) HTN (hypertension) (Chronic) Esophageal reflux (Chronic) Type II diabetes mellitus, uncontrolled (Chronic) Depressive disorder (Chronic) Hospital Course and Treatment Imaging Results: CT/Brain/Head without Contrast IMPRESSION: 1. Chronic involutional changes of the brain. 2. No CT evidence of acute intracranial hemorrhage. RAD/Chest 1 View IMPRESSION: No active or acute cardiopulmonary disease. Echo: Interpretation Summary Normal LV size. Moderate concentric left ventricular hypertrophy. The estimated ejection fraction is 70 %. Stage 1 diastolic dysfunction. Moderate focal aortic valve calcification. Calculated aortic valve area (continuity equation) is 1.5 cm2. Mean aortic valve gradient 17 mmHg. MRI/Brain without Contrast IMPRESSION: 1. Involutional changes of the brain, as described above. 2. No MR evidence for acute infarct. MRI/MRA Head ONLY without Contrast IMPRESSION: No MRA evidence for hemodynamically significant stenosis or aneurysm. MRI/MRA Neck WITH and W/O Contrast IMPRESSION: 1. No MRA evidence for hemodynamically significant stenosis. 2. Limited visualization origin of the right common carotid artery. Operations: None Procedures: 2-D Echocardiogram Summary of Care Provided: Hospital course: The patient is a 67 year old F with pmhx as above who presented to the ER with c/o 30-45 minute episode of not being able to speak correctly while on the phone with her son. She knew what she wanted to say but it did not make sense when she spoke. It spontaneously resolved. She came to the ER with concern for stroke as her mother recently of stroke. She had a ct brain which was negative. She had no symptoms by the time she was in the ER. She was admitted to PCU on tele with concern for stroke / TIA. MRI/A were negative. Echo was as above. She had no events on tele. She was placed on aspirin and statin. She had no further episodes. She was discharged home in stable condition and advised to see her PCP in 1-2 weeks and neuro in 3-4 weeks. This patient was seen by Venkat Mata PA-C under the supervision of Doctor Jovanna. [] - Physical Exam General: Alert, Oriented x3, Cooperative HEENT: Atraumatic, PERRLA, EOMI, Normocephalic Neck: Supple, No JVD, Negative Carotid Bruits Lungs: Clear to auscultation, Normal air movement Cardiovascular: Regular rate, No murmurs Abdomen: Bowel Sounds Present, Soft, Non Tender Extremities: No edema, Capillary Refill Less than 3 Seconds Skin: No rashes, No breakdown Musculoskeletal: No Tenderness to Palpation of Joints or Extremities Neurological: Cranial nerves II-XII grossly intact Psych/Mental Status: Normal Affect, Appropriate, Alert and oriented to time, place, person, mood and affect Vital Signs Temp Pulse Resp BP Pulse Ox 97.8 F 86 17 144/65 H 97 07/25/18 11:38 07/25/18 11:38 07/25/18 11:38 07/25/18 11:38 07/25/18 11:38 Oxygen Delivery Method Room Air Weight: 234 lb 5.622 oz Body Mass Index (BMI) 36.8 Finger Stick Blood Glucose 81 Intake and Output for Last 24 Hours 07/23/18 07/24/18 07/25/18 23:59 23:59 23:59 Intake Total 840 / 840 1500 / 1500 Balance 840 / 840 1500 / 1500 Discharge Diet: Low fat/ Low Cholesterol, 2000 mg Sodium Diet Discharge Activity: Return to Normal Activity Home Medications: Medications to take at Discharge Hydrochlorothiazide [Hctz] 25 mg PO DAILY 07/23/18 Ibuprofen [Motrin] 400 mg PO BID 07/23/18 Melatonin 20 mg PO QHS 07/23/18 traZODone [Desyrel] 100 mg PO QHS 07/23/18 Aspirin [Aspirin, Baby] 81 mg PO DAILY@0800 tab.chew 07/25/18 Atorvastatin Calcium [Lipitor] 40 mg PO QHS #30 tab 07/25/18 Following Prescrptions Were Given to Patient: Atorvastatin Calcium [Lipitor] 40 mg PO QHS #30 tab Primary Care Physician: Tenzin Wise MD [Primary Care Provider] - Please follow up with your Primary Care Physician in: 1-2 weeks Please Follow Up With: Javon Beavers MD When: 3-4 weeks Please Follow Up With: Tenzin Wise MD Disposition: Home Minutes spent on discharge:: 35 Patient Condition:: Stable Medical Necessity - Tobacco Use Smoking Status: Former smoker Meaningful Use Info Meaningful Use Diagnoses (Choose all that apply): None applicable <Tenzin Nugent - Last Filed: 07/25/18 14:11> Discharge Date and Diagnosis - Secondary Discharge Diagnosis Chronic Problems Malignant neoplasm of colon (Chronic) HTN (hypertension) (Chronic) Esophageal reflux (Chronic) Type II diabetes mellitus, uncontrolled (Chronic) Depressive disorder (Chronic) Hospital Course and Treatment Summary of Care Provided: This patient was seen in conjunction with Venkat Mata PA-C . I have independently interviewed and examined the patient and reviewed pertinent historical, laboratory, and other data. Please refer to Venkat Mata PA-C note for details of this patient's presentation, findings, and recommendations. I have reviewed Venkat Mata PA-C note and concur with documented findings. In brief, patient is a 67-year-old lady who presented with transient aphasia lasting 30-45 minutes. An assessment of possible transient ischemic attack was made admitted to dated bed for subsequent evaluation Hospital course as elicited above - Physical Exam Vital Signs Temp Pulse Resp BP Pulse Ox 97.8 F 86 17 144/65 H 97 07/25/18 11:38 07/25/18 11:38 07/25/18 11:38 07/25/18 11:38 07/25/18 11:38 Oxygen Delivery Method Room Air Weight: 106.3 kg Body Mass Index (BMI) 36.8 Finger Stick Blood Glucose 81 Intake and Output for Last 24 Hours 07/23/18 07/24/18 07/25/18 23:59 23:59 23:59 Intake Total 840 / 840 1500 / 1500 Balance 840 / 840 1500 / 1500 Code Visit OBSV E&M: 48821 Observation care discharge
--- NOTE | 2018-07-26 14:44 | CASEMGMT ---
DANYA FERNANDO Discharge Follow-Up Phone Call. DANIELLE: Michelle Strata: 3 Discharge Date: 07-25-18 Adm Dx: Stroke-like Symptoms. Call placed to pt to inquire about how she has been feeling since she was discharged from the hospital. Pt states i've been fine. States she slept very well last night. She states she has picked up the prescription for Lipitor and on track with my medication. States is aware of the appt made with Dr Wise and she plans to call Call Dr Beavers's office today to make appt with him. Denies having any questions about the discharge instructions or medications and denies having any concerns. DANYA FERNANDO thanked pt for choosing [facility]. Nasir DENNIS RN, CM
--- OUTSIDE RECORDS SUMMARY | 2018-09-16 21:37 | XMS RPT_ITS ---
:1950 Author Organization OHIP Care Team Providers Name Role Phone Tenzin Wise Primary Care Unavailable Morro Christina Admitting Unavailable Tenzin Nugent Attending Unavailable Morro Christina Admitting Unavailable Morro Christina Attending Unavailable Tenzin Wise Primary Care Unavailable Morro Christina Consulting Unavailable Morro Christina Admitting Unavailable Tenzin Wise Primary Care Unavailable PaintsilDiana Consulting Unavailable DestinyilDiana Attending Unavailable Morro Christina Admitting Unavailable Tenzin Wise Primary Care Unavailable Tenzin Nugent Consulting Unavailable Tenzin Nugent Attending Unavailable PROBLEMS PROBLEMS No Problem Records FoundPROCEDURES PROCEDURES No Procedure Records FoundRESULTS RESULTS 12 LEAD ELECTROCARDIOGRAM Observed: 07/26/2018 Status: F Source: RG 2:55 PM [facility] REPOSITORY [facility] Cardiovascular Services [address] [place] [address] 12 Lead EKG 07/23/18 1842 MR#: [id number] Acct: [id number] Name: PREET WARREN Rep #: [id number] : 1950 67 From: Son Palacio MD Attending Dr: Tenzin Nugent MD Status: DIS IN Ordering Dr: Mike Prabhakar MD Date: 07/23/18 Location: [facility] Sex: F C Admitted: 07/24/18 Test Reason : GEN ILL Blood Pressure : / mmHG Vent. Rate : 061 BPM Atrial Rate : 061 BPM P-R Int : 134 ms QRS Dur : 090 ms QT Int : 418 ms P-R-T Axes : 008 -27 -06 degrees QTc Int : 420 ms Normal sinus rhythm Moderate voltage criteria for LVH, may be normal variant Borderline ECG Confirmed by HAKEEM ORTEGA, SON ([id number]), science editor SHADE GALLO ([id number]) on 07/26/2018 2:54:46 PM Referred By: JW Confirmed By:SON PALACIO MD 07/26/18 1454 Date Son Palacio MD CC: Teznin Wise MD; Tenzin Nugent MD; Mike Prabhakar MD Signed DISCHARGE SUMMARY Observed: 07/25/2018 Status: F Source: RG 2:12 PM [facility] REPOSITORY [facility] Medical Records Department [address] [place] [address] Discharge Summary 07/25/18 1355 MR#: [id number] Acct: [id number] Name: PREET WARREN Rep #: [id number] : 1950 67 From: Venkat GONZALEZ PCP: Tenzin Wise MD Status: DIS IN Y Location: [place] [id number] <Venkat Mata - Last Filed: 07/25/18 13:55> Discharge Date and Diagnosis Date of Admission: 07/23/18 Date of Discharge: 07/25/18 - Primary Discharge Diagnosis TIA HTN Hx Colon cancer s/p colectomy Moderate aortic calcification with mild aortic stenosis 1+ TVI - Secondary Discharge Diagnosis Chronic Problems Malignant neoplasm of colon (Chronic) HTN (hypertension) (Chronic) Esophageal reflux (Chronic) Type II diabetes mellitus, uncontrolled (Chronic) Depressive disorder (Chronic) Hospital Course and Treatment Imaging Results: CT/Brain/Head without Contrast IMPRESSION: 1. Chronic involutional changes of the brain. 2. No CT evidence of acute intracranial hemorrhage. RAD/Chest 1 View IMPRESSION: No active or acute cardiopulmonary disease. Echo: Interpretation Summary Normal LV size. Moderate concentric left ventricular hypertrophy. The estimated ejection fraction is 70 %. Stage 1 diastolic dysfunction. Moderate focal aortic valve calcification. Calculated aortic valve area (continuity equation) is 1.5 cm2. Mean aortic valve gradient 17 mmHg. MRI/Brain without Contrast IMPRESSION: 1. Involutional changes of the brain, as described above. 2. No MR evidence for acute infarct. MRI/MRA Head ONLY without Contrast IMPRESSION: No MRA evidence for hemodynamically significant stenosis or aneurysm. MRI/MRA Neck WITH and W/O Contrast IMPRESSION: 1. No MRA evidence for hemodynamically significant stenosis. 2. Limited visualization origin of the right common carotid artery. Operations: None Procedures: 2-D Echocardiogram Summary of Care Provided: Hospital course: The patient is a 67 year old F with pmhx as above who presented to the ER with c/o 30-45 minute episode of not being able to speak correctly while on the phone with her son. She knew what she wanted to say but it did not make sense when she spoke. It spontaneously resolved. She came to the ER with concern for stroke as her mother recently of stroke. She had a ct brain which was negative. She had no symptoms by the time she was in the ER. She was admitted to PCU on tele with concern for stroke / TIA. MRI/A were negative. Echo was as above. She had no events on tele. She was placed on aspirin and statin. She had no further episodes. She was discharged home in stable condition and advised to see her PCP in 1-2 weeks and neuro in 3-4 weeks. This patient was seen by Venkat Mata PA-C under the supervision of Doctor Jovanna. [] - Physical Exam General: Alert, Oriented x3, Cooperative HEENT: Atraumatic, PERRLA, EOMI, Normocephalic Neck: Supple, No JVD, Negative Carotid Bruits Lungs: Clear to auscultation, Normal air movement Cardiovascular: Regular rate, No murmurs Abdomen: Bowel Sounds Present, Soft, Non Tender Extremities: No edema, Capillary Refill Less than 3 Seconds Skin: No rashes, No breakdown Musculoskeletal: No Tenderness to Palpation of Joints or Extremities Neurological: Cranial nerves II-XII grossly intact Psych/Mental Status: Normal Affect, Appropriate, Alert and oriented to time, place, person, mood and affect Vital Signs Temp Pulse Resp BP Pulse Ox 97.8 F 86 17 144/65 H 97 07/25/18 11:38 07/25/18 11:38 07/25/18 11:38 07/25/18 11:38 07/25/18 11:38 Oxygen Delivery Method Room Air Weight: 234 lb 5.622 oz Body Mass Index (BMI) 36.8 Finger Stick Blood Glucose 81 Intake and Output for Last 24 Hours Intake Total 840 / 840 1500 / 1500 Balance 840 / 840 1500 / 1500 Discharge Diet: Low fat/ Low Cholesterol, 2000 mg Sodium Diet Discharge Activity: Return to Normal Activity Home Medications: Medications to take at Discharge Hydrochlorothiazide [Hctz] 25 mg PO DAILY 07/23/18 Ibuprofen [Motrin] 400 mg PO BID 07/23/18 Melatonin 20 mg PO QHS 07/23/18 traZODone [Desyrel] 100 mg PO QHS 07/23/18 Aspirin [Aspirin, Baby] 81 mg PO DAILY@0800 tab.chew 07/25/18 Atorvastatin Calcium [Lipitor] 40 mg PO QHS #30 tab 07/25/18 Following Prescrptions Were Given to Patient: Atorvastatin Calcium [Lipitor] 40 mg PO QHS #30 tab Primary Care Physician: Tenzin Wise MD [Primary Care Provider] - Please follow up with your Primary Care Physician in: 1-2 weeks Please Follow Up With: Javon Beavers MD When: 3-4 weeks Please Follow Up With: Tenzin Wise MD Disposition: Home Minutes spent on discharge:: 35 Patient Condition:: Stable Medical Necessity - Tobacco Use Smoking Status: Former smoker Meaningful Use Info Meaningful Use Diagnoses (Choose all that apply): None applicable <Tenzin Nugent - Last Filed: 07/25/18 14:11> Discharge Date and Diagnosis - Secondary Discharge Diagnosis Chronic Problems Malignant neoplasm of colon (Chronic) HTN (hypertension) (Chronic) Esophageal reflux (Chronic) Type II diabetes mellitus, uncontrolled (Chronic) Depressive disorder (Chronic) Hospital Course and Treatment Summary of Care Provided: This patient was seen in conjunction with Venkat Mata PA-C . I have independently interviewed and examined the patient and reviewed pertinent historical, laboratory, and other data. Please refer to Venkat Mata PA-C note for details of this patient's presentation, findings, and recommendations. I have reviewed Venkat Mata PA-C note and concur with documented findings. In brief, patient is a 67-year-old lady who presented with transient aphasia lasting 30-45 minutes. An assessment of possible transient ischemic attack was made admitted to [facility] bed for subsequent evaluation Hospital course as elicited above - Physical Exam Vital Signs Temp Pulse Resp BP Pulse Ox 97.8 F 86 17 144/65 H 97 07/25/18 11:38 07/25/18 11:38 07/25/18 11:38 07/25/18 11:38 07/25/18 11:38 Oxygen Delivery Method Room Air Weight: 106.3 kg Body Mass Index (BMI) 36.8 Finger Stick Blood Glucose 81 Intake and Output for Last 24 Hours Intake Total 840 / 840 1500 / 1500 Balance 840 / 840 1500 / 1500 Code Visit OBSV E AND M: [id number] Observation care discharge 07/25/18 1402 <Electronically signed by Venkat GONZALEZ> Date Venkat GONZALEZ 07/25/18 1412<Electronically signed by Tenzin Nugent MD> Cosigner Signature (if applicable): Date Tenzin Nugent MD CC: CARLOS Mata; Tenzin Wise MD; Tenzin Nugent MD Signed DISCHARGE INSTRUCTION Observed: 07/25/2018 Status: F Source: RG 11:25 AM [facility] REPOSITORY [facility] Medical Records Department [address] [place] [address] Instructions for Home/Discharge Instructions 07/25/184 MR#: [id number] Acct: [id number] Name: PREET WARREN Rep #: [id number] : 1950 67 From: Venkat GONZALEZ PCP: Tenzin Wise MD Status: ADM IN - Discharge Diagnoses Current Active Problems: Current Active and Chronic Problems Stroke-like episode (Acute) You will use the following diet at home:: Cardiac Your food should be the consistency of: Regular Your liquids should be the consistency of: Regular/Thin Discharge Activity: Return to Normal Activity Allergies/Adverse Reactions: Allergies No Known Allergies Allergy (Verified 07/23/18 21:44) Medications to take at Discharge Hydrochlorothiazide [Hctz] 25 mg PO DAILY 07/23/18 Ibuprofen [Motrin] 400 mg PO BID 07/23/18 Melatonin 20 mg PO QHS 07/23/18 traZODone [Desyrel] 100 mg PO QHS 07/23/18 Aspirin [Aspirin, Baby] 81 mg PO DAILY@0800 tab.chew 07/25/18 Atorvastatin Calcium [Lipitor] 40 mg PO QHS #30 tab 07/25/18 The following prescriptions were given: Atorvastatin Calcium [Lipitor] 40 mg PO QHS #30 tab Primary Care Physician: Tenzin Wise MD [Primary Care Provider] - Please follow up with your Primary Care Physician in: 1-2 weeks Test Results: Test results from this visit will be discussed in further detail at your follow-up appointment, if applicable. Please Follow Up With: Javon Beavers MD When: 3-4 weeks Proposed Discharge Date: 07/25/18 07/25/18 1125 <Electronically signed by Venkat GONZALEZ> Date Venkat GONZALEZ CC: Tenzin Wise MD ECHOCARDIOGRAM COMPLETE Observed: 07/25/2018 Status: F Source: RG 9:53 AM [facility] REPOSITORY [facility] Cardiovascular Services [address] [place] [address] Echo Complete 07/25/18821 MR#: [id number] Acct: [id number] Name: PREET WARREN Rep #: [id number] : 1950 67 From: Pito Rucker MD Attending Dr: Tenzin Nugent MD Status: ADM IN Ordering Dr: Morro Christina MD Date: 07/23/18 Location: [facility] Sex: F C Admitted: 07/24/18 Reason For Study: TIA/CVA Procedure This was a 2D Doppler, Color Flow transthoracic echocardiogram. Myocardial strain analysis was performed in this exam to aid in the assessment of cardiac function. Exam performed portable in patient room. Left Ventricle Normal LV size. Moderate concentric left ventricular hypertrophy. The estimated ejection fraction is 70 %. Stage 1 diastolic dysfunction. No regional wall motion abnormalities noted. Right Ventricle Normal RV size. Normal systolic function. Atria The left atrium is mildly enlarged. The right atrium is mildly enlarged. Mitral Valve There is mild to moderate mitral annular calcification. Tricuspid Valve Normal tricuspid valve. Mild (1+) tricuspid valve insufficiency. Pulmonary artery systolic pressure is 30 mmHg. Aortic Valve Trisinus/trileaflet aortic valve. Moderate focal aortic valve calcification. Peak aortic valve gradient 30 mmHg. Mean aortic valve gradient 17 mmHg. Mild aortic stenosis. Calculated aortic valve area (continuity equation) is 1.5 cm2. Pulmonic Valve Normal pulmonic valve. Great Vessels Normal aortic root. The pulmonary artery is normal size. Normal inferior vena cava. Pericardium/Pleural No pericardial effusion. Medication Performed a rapid injection of agitated mix of 9 cc saline and 1cc air to assess for atrial septal defect. MMode/2D Measurements AND Calculations LVIDd: 4.5 cm IVSd: 1.5 cm LVOT diam: 2.1 cm LVIDs: 3.0 cm LVPWd: 1.4 cm RVDd: 3.7 cm FS: 33.5 % LVOT area: 3.5 cm2 Ao root diam: 3.5 cm LAV(MOD-bp): 63.6 ml LVAd ap4: 21.8 cm2 LAV(MOD-bp) Indexed: 29.3 ml/m2 EDV(MOD-sp4): 56.9 ml LAV(MOD-sp2): 53.7 ml EDV(sp4-el): 59.6 ml LAV(MOD-sp4): 71.6 ml LVAs ap4: 11.5 cm2 ESV(MOD-sp4): 20.0 ml ESV(sp4-el): 18.0 ml EF(MOD-sp4): 64.8 % EF(sp4-el): 69.7 % SV(MOD-sp4): 36.8 ml SV(sp4-el): 41.6 ml LA A4 area: 23.4 cm2 LA dimension(2D): 4.7 cm RA A4 area: 13.0 cm2 Doppler Measurements AND Calculations MV E max luis alberto: 81.4 cm/sec Lat Peak E' Luis Alberto: 5.6 cm/sec Med Peak E' Luis Alberto: 4.9 cm/sec MV A max luis alberto: 94.4 cm/sec E/E' lat: 14.7 E/E' med: 16.6 MV E/A: 0.86 Ao V2 max: 275.5 cm/sec LV V1 max: 118.2 cm/sec SV(LVOT): 103.5 ml Ao max P.4 mmHg LV V1 max P.6 mmHg Ao V2 mean: 196.3 cm/sec LV V1 mean P.3 mmHg Ao mean P.8 mmHg LV V1 mean: 87.1 cm/sec Ao V2 VTI: 68.2 cm LV V1 VTI: 29.2 cm KEVIN(I,D): 1.5 cm2 KEVIN(V,D): 1.5 cm2 PA V2 max: 89.4 cm/sec TR max luis alberto: 252.1 cm/sec TR max P.4 mmHg Interpretation Summary Normal LV size. Moderate concentric left ventricular hypertrophy. The estimated ejection fraction is 70 %. Stage 1 diastolic dysfunction. Moderate focal aortic valve calcification. Calculated aortic valve area (continuity equation) is 1.5 cm2. Mean aortic valve gradient 17 mmHg. Ordering Physician: Morro Christina Referring Physician: Tenzin Wise Performed By: Rachel Dumont, ANABEL, RVT 07/25/18 0952 Date Pito Rucker MD CC: Tenzin Wise MD; Tenzin Nugent MD; Morro Christina MD Date Dictated: 07/25/18821 Date Transcribed: 07/25/18951 Community Resource Consultant: Signed MRA HEAD ONLY WITHOUT Observed: 07/24/2018 Status: F Source: [place] CONTRAST 9:37 AM [facility] REPOSITORY [facility] Imaging Services [address] [place] [address] MRA Head ONLY without Contrast MR#: [id number] Acct: [id number] Name: PREET WARREN Rep #: [id number] : 1950 F 67 From: Ericka Gallo MD PCP: Tenzin Wise MD Status: ADM IN Study: MRA Head ONLY without Contrast Date of Exam: 07/24/18 Exam# [id number] Ordering Dr: Venkat Mata STUDY: MRA OF THE HEAD WITHOUT CONTRAST REASON FOR EXAM: Female, 67 years old. Finding difficulty for one day. TECHNIQUE: 3-D hkal-qx-kxkhjv (TOF) imaging was performed with MIPs. The study was performed unenhanced. COMPARISON: Prior comparison studies are not available for review at this time. FINDINGS: Normal bilateral petrous carotid arteries. Normal right cavernous carotid artery with a normal supraclinoid bifurcation. Normal left cavernous carotid artery with a normal supraclinoid bifurcation. Normal right A1 segments of the anterior cerebral artery. Normal left A1 segments of the anterior cerebral artery. Normal intact anterior communicating artery (ACOM). Normal bilateral A2 segments of the anterior cerebral arteries. Normal right M1 and M2 segments of the middle cerebral arteries, with a normal M1 bifurcation. Normal left M1 and M2 segments of the middle cerebral arteries, with a normal M1 bifurcation. Normal right posterior communicating artery (PCOM). Normal left posterior communicating artery (PCOM). Normal bilateral vertebral arteries. Normal basilar artery with a normal basilar bifurcation. The visualized bilateral superior cerebellar (SCA) arteries are normal. Normal bilateral P1, P2 and visualized P3 segments of the posterior cerebral arteries. There is no demonstrated aneurysm of the sun'aq of Rosen. There is no major vessel occlusion or hemodynamically significant stenosis. There are mild involutional changes of the brain. MRI/MRA Head ONLY without Contrast IMPRESSION: No MRA evidence for hemodynamically significant stenosis or aneurysm. Electronically Signed: Ericka Gallo MD at 0:13 EST , Service support , CC: CARLOS Mata; Tenzin Wise MD Community Resource Consultant: Signed MRA NECK WITH AND W/O Observed: 07/24/2018 Status: F Source: [place] CONTRAST 9:37 AM [facility] REPOSITORY [facility] Imaging Services [address] [place] [address] MRA Neck WITH and W/O Contrast MR#: [id number] Acct: [id number] Name: PREET WARREN Rep #: [id number] : 1950 F 67 From: Ericka Gallo MD PCP: Tnezin Wise MD Status: ADM IN Study: MRA Neck WITH and W/O Contrast Date of Exam: 07/24/18 Exam# [id number] Ordering Dr: Venkat Mata STUDY: MRA NECK WITH AND WITHOUT CONTRAST REASON FOR EXAM: Female, 67 years old. Word finding difficulty for one day. TECHNIQUE: 3-D zeiy-gl-uyaodl (TOF) imaging was performed in an 1.5 T MRI scanner. 10 ml of Gadavist was administered for the contrast enhanced images. Several images but limited by patient motion. COMPARISON: Prior comparable comparison studies are not available for review at this time. FINDINGS: RIGHT CAROTID ARTERIES: There is limited evaluation of the origin of the right common carotid artery. Right common carotid artery is mildly tortuous. There is mild atherosclerotic plaque formation with minimal narrowing of the right carotid bulb. Normal origin of the right internal carotid (ICA) artery without a hemodynamically significant stenosis. Normal visualized cervical portion of the right internal carotid artery. Normal origin of the right external carotid artery (ECA). LEFT CAROTID ARTERIES: There is atherosclerotic tortuous elongation of the left common carotid artery. There is mild atherosclerotic plaque formation with minimal narrowing of the left carotid bulb. Normal origin of the left internal carotid (ICA) artery without a hemodynamically significant stenosis. There is atherosclerotic tortuous elongation of the cervical portion of the left internal carotid artery. Normal origin of the left external carotid artery (ECA). VERTEBRAL ARTERIES: Normal antegrade flow within the bilateral vertebral artery without a hemodynamically significant stenosis. MRI/MRA Neck WITH and W/O Contrast IMPRESSION: 1. No MRA evidence for hemodynamically significant stenosis. 2. Limited visualization origin of the right common carotid artery. Electronically Signed: Ericka Gallo MD at 2:54 EST , Service support , CC: CARLOS Mata; Tenzin Wise MD Community Resource Consultant: Signed BRAIN WITHOUT Observed: 07/24/2018 Status: F Source: [place] CONTRAST 9:37 AM [facility] REPOSITORY [facility] Imaging Services [address] [place] [address] Brain without Contrast MR#: [id number] Acct: [id number] Name: PREET WARREN Rep #: [id number] : 1950 F 67 From: Ericka Gallo MD PCP: Tenzin Wise MD Status: ADM IN Study: Brain without Contrast Date of Exam: 07/24/18 Exam# [id number] Ordering Dr: Venkat Mata STUDY: MRI BRAIN WITHOUT CONTRAST REASON FOR EXAM: Female, 67 years old. Word finding difficulty. TECHNIQUE: Standardized multiplanar fat and water weighted pulse sequences were obtained. COMPARISON: CT of the head dated July 23, 2018. FINDINGS: There is mild cerebral atrophy with widening of the extra- axial spaces and ventricular dilatation. There are a limited number of small white matter hyperintensities, distributed throughout the deep white matter tracts of the cerebral hemispheres, consistent with mild chronic white matter ischemic changes. There is confluent periventricular hyperintensity cloaking the lateral ventricles, consistent with periventricular leukoaraiosis. There is no evidence for recent intracranial ischemia or other cause of cytotoxic edema on diffusion weighted imaging (DWI). Normal T2* images of the brain without demonstrated susceptibility artifact. There is no demonstrated hemosiderin stain. There are prominent perivascular spaces (PVS) involving the basal ganglia. Normal thalami. There is no extra-axial fluid accumulation. Normal flow voids within the major intracranial circulation suggesting patency by spin echo criteria. Normal sella turcica, pituitary gland, infundibular stalk, optic chiasm and hypothalamus. Normal tectal plate and pineal gland. Normal midbrain, ishan and medulla. Normal cerebellum. There are large basal cisterns. Normal bilateral temporal bones. Normal bilateral internal auditory canals. No demonstrated orbital abnormality, within the constraints of a routine brain study. There is mild mucoperiosteal thickening left maxillary sinus. Normal calvarium and skull base. Normal visualized soft tissue structures. Normal visualized upper cervical spine. MRI/Brain without Contrast IMPRESSION: 1. Involutional changes of the brain, as described above. 2. No MR evidence for acute infarct. Electronically Signed: Ericka Gallo MD at 3:28 EST , Service support , CC: CARLOS Mata; Tenzin Wise MD Community Resource Consultant: Signed LIPID PROFILE Collected: 07/24/2018 Status: F Source: RG 5:20 AM [facility] REPOSITORY TYPE CODE TESTS RESULT OUT OF RANGE REFERENCE UNITS LAB L501.4900 200 mg/dL High CHOL 218 Result Comment: <200 mg/dL Desirable 200-240 mg/dL Borderline >240 mg/dL High Risk LAB L501.5000 mg/dL High TRIG 203 Result Comment: The drugs N-Acetylcysteine and Metamizole may falsely depress this assay. Serum Triglycerides Reference Interval Normal <150 mg/dL Borderline high 150 - 199 mg/dL High 200 - 499 mg/dL Very High > or = 500 mg/dL LAB L501.6400 mg/dL Normal HDL 55 Result Comment: The drugs N-Acetylcysteine and Metamizole may falsely depress this assay. Reference Range HDL <40 mg/dL Low HDL Cholesterol HDL >or= 60 mg/dL High HDL Cholesterol LAB L501.6500 0-130 mg/dL Normal LDL 122 LAB L501.6600 5-40 mg/dL High VLDL 41 Performed By: #### L500.4100 #### [facility] [address] [place], [address] HISTORY AND PHYSICAL Observed: 07/23/2018 Status: F Source: [place] EXAM 10:52 PM [facility] REPOSITORY [facility] Medical Records Department [address] [place] [address] History and Physical 07/23/182030 MR#: [id number] Acct: [id number] Name: PREET WARREN Rep #: [id number] : 1950 67 From: Morro Christina MD PCP: Tenzin Wise MD Status: ADM GERTRUDIS Y Location: [place] [address] ADDENDUM by Morro Christina MD on 07/23/18 at 2252 Code Visit Patient reported to nurse that she takes HCTZ so likely she has HTN. In any case will do Permissive HTN with labetalol as indicated as in original notes. Patient asking for Melatonin 20mg for the night. Will do Melatonin 10 mg for tonight. 07/23/18 2252 <Electronically signed by Morro Christina MD> Date Morro Christina MD cc: Tenzin Wise MD; Morro Christina MD * Signed Problem List (1) Malignant neoplasm of colon Status: Chronic (2) Depressive disorder Status: Chronic (3) Stroke-like episode Status: Acute History of Present Illness Date of Admission: 07/23/18 Chief Complaint: word finding difficulties The patient is a 67 year old F with a significant history of depressive disorder; sciatica; colon cancer status post colectomy; multiple orthopedic surgeries who presented with 45 minutes of word finding difficulty. The patient was talking on the phone with her son who is in [place]. Patient noticed that she was having word finding difficulties and nonsensical talk. This lasted for about 45 minutes. Subsequently patient presented to the emergency department. By the time presented to the emergency department her symptoms has resolved. Patient was particularly scared about her symptoms since her mother from a massive stroke. Also she reports that her ears felt clogged and she had ringing in her ears. Notably family and patient reported that a couple of months ago patient was exposed to fire arms and she developed loss of hearing. Associated with her symptoms was lightheadedness. Past Medical History Past Medical History (Chronic Problems): Chronic Problems Malignant neoplasm of colon (Chronic) HTN (hypertension) (Chronic) Esophageal reflux (Chronic) Type II diabetes mellitus, uncontrolled (Chronic) Depressive disorder (Chronic) Allergies No Known Allergies Allergy (Verified 07/23/18 17:51) Home Medications: Ambulatory Orders Medication Instructions Recorded Ibuprofen [Motrin] 400 mg PO BID 07/23/18 Melatonin 10 mg PO QHS 07/23/18 traZODone [Desyrel] 100 mg PO QHS 07/23/18 Surgical History: colectomy, total knee arthroplasty - Bilateral, - - Right elbow surgery; and right ankle fusion Lives: Spouse/ Significant Other Smoking Status: Former smoker Alcohol: Occasional - She drinks about 2 glasses of wine every day; she denies that she would go into withdrawal if she does not drink. - *Family History Maternal Family History: Family History (Last Updated 07/23/18 @ 21:18 by Morro Christina MD) Mother CVA (cerebral vascular accident) Father Hypertension Prostate cancer Review of Systems Constitutional: Denies: Chills, Fever, Weight Change HEENT: Denies: Head Aches, Sinus Congestion, Sinus Drainage Cardiovascular: Denies: Chest Pain, Palpitations Respiratory: Denies: Cough, Shortness of breath at rest, Sputum production Gastrointestinal: Denies: Abdominal Pain, Nausea, Vomiting Genitourinary: Denies: Dysuria Musculoskeletal: Reports: Leg Pain - Chronic from sciatica.. Denies: Joint Pain, Joint Tenderness Skin: Denies: Rash, Wounds Neurological: Denies: Numbness, Tingling, Focal weakness Psychiatric: Denies: Anxiety, Depression, Homicidal Ideations, Suicidal Ideations Hematologic/ Lymphatic: Denies: Easy Bruising, Easy Bleeding VTE Information - Inpt Only VTE Present on Admission: No VTE Mechan Device Prophylaxis: None VTE Pharm Prophylaxis ordered?: Yes Patient Problems: Active and Suspected Problems Stroke-like episode (Acute) - Physical Exam General: Alert, Oriented x3, Cooperative HEENT: Atraumatic, PERRLA, EOMI, Normocephalic Neck: Supple, No JVD, Negative Carotid Bruits Lungs: Clear to auscultation, Normal air movement Cardiovascular: Regular rate, No murmurs Abdomen: Bowel Sounds Present, Soft, Non Tender Extremities: No edema, Capillary Refill Less than 3 Seconds Skin: No rashes, No breakdown Musculoskeletal: No Tenderness to Palpation of Joints or Extremities Neurological: Cranial nerves II-XII grossly intact, Deep Tendon Reflexes 2+/4 and Symmetrical, Neuro grossly intact, - - Equal handgrips bilateral.Patient declined strength testing of bilateral hands stating that her arms are weak because of multiple blood draws. Psych/Mental Status: Normal Affect, Appropriate Vital Signs Temp Pulse Resp BP Pulse Ox 97.1 F L 66 23 H 166/87 H 98 07/23/18 17:51 07/23/18 20:19 07/23/18 20:19 07/23/18 20:19 07/23/18 20:19 Oxygen Delivery Method Room Air Weight: 108.1 kg Body Mass Index (BMI) 37.3 Finger Stick Blood Glucose 81 Laboratory Tests Past 24 Hrs WBC POC Glucose POC Glucose 81 Assessment/Plan All Active Problems Stroke-like episode (Acute) The patient is a 67 year old F with a significant history of depressive disorder; sciatica; colon cancer status post colectomy; multiple orthopedic surgeries who presented with 45 minutes of word finding difficulty; with associated lightheadedness concerning for transient ischemic attack.. Strokelike symptoms At the emergency department her symptoms had resolved. NINDS NIH Scale was 0 CT of the head independently reviewed was unremarkable Continue NINDS NIH Scale per protocol Notably her blood pressure was elevated. Patient denies any history of hypertension and diabetes although in the EMR there is hypertension and diabetes listed on her profile. Physical therapy, occupational therapy and speech therapy to work with patient. N.p.o. until bedside swallow eval. Daily aspirin. High intensity statin Lipid profile and A1c ordered. Permissive hypertension. Control heart rate of labetalol for systolic blood pressure of more than 220 or diastolic blood pressure of more than 120. Permissive HTN for 24 hrs, retirement goal BP < 120/80 mmHg. Since it is a Wednesday and MRI would not be readily available a carotid ultrasound of neck ordered. Echocardiogram ordered. Elevated blood pressure without diagnosis of hypertension. Patient denies any high blood pressure. Trend blood pressure Will permit permissive hypertension as above. Hearing loss Patient encouraged to follow-up outpatient with PCP and ENT. Insomnia Melatonin Continued Depression Trazodone continued DVT prophylaxis Subcutaneous heparin. Code Visit OBSV E AND M: 72799 Initial observation care L3 07/23/182141 <Electronically signed by Morro Christina MD> Date Morro Christina MD Cosigner Signature: Date (if applicable) CC: Tenzin Wise MD; Morro Christina MD Signed EMERGENCY DEPARTMENT Observed: 07/23/2018 Status: F Source: [place] SUMMARY 9:51 PM [facility] REPOSITORY [facility] Medical Records Department [address] [place] [address] Emergency Department Summary 07/23/18 1810 MR#: [id number] Acct: [id number] Name: PREET WARREN Rep #: [id number] : 1950 67 From: Mike Prabhakar MD PCP: Tenzin Wise MD Status: ADM GERTRUDIS - ER Visit Summary Date of Service: 07/23/18 Chief Complaint: Trouble with her speech History of Present Illness: The patient is a 67 F past medical history of sciatica. Patient never had a stroke or TIA. Denies any cardiac history. She is speaking on the phone with her son. She states she had trouble putting her words together. Trouble finding words. There was not slurred speech just trouble facing the right words together. She stated this came on suddenly. And has since resolved. It lasted less than 30 minutes. She denies any headache. No recent head trauma. She denies any weakness to her arms or legs. No numbness or tingling. No headache. She is on no blood thinners. She denies having prior symptoms like this before. Physical Examination: Older female no acute distress. Vital signs are stable she is afebrile. H EENT exam atraumatic. There is round reactive light. Extra motions are intact. No palsy. No facial numbness or weakness. Normal smile. No facial droop. Neck nontender. No bruits appreciated. Lungs clear to auscultation bilaterally. Heart regular rate and rhythm rate about 70. Abdomen soft and nontender. Normal bowel sounds no peritoneal signs. She is moving all 4 extremities. They are neurovascularly intact. 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 Equal symmetrical dorsi and plantar flexion. Fingertip to nose is within normal limits. Neurologically she is awake alert with no focal motor or sensory deficits. Currently an NIH of 0. She has normal speech at the current time. Test Results: Stroke workup. CBC normal. Chemistry normal. Troponin normal. Sinus rhythm rate of 61 with no acute abnormality. Chest x-ray shows a normal cardiac silhouette mediastinum read both by myself and radiologist. CT of the brain I have reviewed and see no acute abnormality. There is no bleed. We are awaiting formal radiology interpretation. Emergency Department Course and Treatment: Patient's initial exam is normal. Her neurological symptoms have resolved. On repeat exam at 2030 p.m. patient is doing well. She has had no recurrent symptoms. Her neurologic exam remains normal. I went over all test results with both her and her significant other at bedside. She is agreeable to admission and further evaluation. Treatment Plan: I will speak to the hospitalist about admission. Disposition: Admission Impression: Acute transient dysarthria (TIA) This note was generated with Zoomingo dictation software. It may contain incorrect words, spelling, and punctuation that were not noted in review of the chart prior to signing ED Disposition - Plan for ED Patient: Chief Complaint: Neuro S/Sx Referrals: Tenzin Wise MD [Primary Care Provider] - What to do if you have Problems For any increased pain, shortness of breath, bleeding, nausea or vomiting, chest pain, or any unexpected problems, contact your Primary Care Provider. Call [facility] ([phone]) or report to the closest Emergency Room. Call 911 if necessary. 07/23/182150 <Electronically signed by Mike Prabhakar MD> Date Mike Prabhakar MD Cosigner Signature (If Indicated): Date CC: Tenzin Wise MD PROTHROMBIN TIME W/INR Collected: 07/23/2018 Status: F Source: [place] 8:10 PM [facility] REPOSITORY Order Comment: REDRAW. PREVIOUS SPECIMEN REJECTED DUE TO HEMOLYSIS. 07/23/181929 Emely Levine. TYPE CODE TESTS RESULT OUT OF RANGE REFERENCE UNITS LAB L300.4150 11.7-14.9 SECONDS Normal PROTIME 12.9 LAB L300.4200 Normal INR 1.0 Performed By: #### L300.3900, L300.4310 #### [facility] [address] [place], [place], [address] PARTIAL THROMBOPLAST Collected: 07/23/2018 Status: F Source: [place] TIME 8:10 PM [facility] REPOSITORY Order Comment: REDRAW. PREVIOUS SPECIMEN REJECTED DUE TO HEMOLYSIS. 07/23/181929 Emely Levine. TYPE CODE TESTS RESULT OUT OF RANGE REFERENCE UNITS LAB L300.4310 24.1-36.2 Seconds Normal PTT 25.5 Performed By: #### L300.3900, L300.4310 #### [facility] [address] [place], [place], [address] BEDSIDE GLUCOSE Collected: 07/23/2018 Status: F Source: [place] 6:52 PM [facility] REPOSITORY TYPE CODE TESTS RESULT OUT OF RANGE REFERENCE UNITS LAB L501.080 70-110 mg/dL Normal BEDSIDE GLU 81 Result Comment: Dr Brown Followed MANAGEMENT OF PATIENT CARE PER NURSING PROTOCOL Performed By: #### L501.080 #### [facility] Point of Care [address] [place] [address] CBC W/DIFF, AUTOMATED Collected: 07/23/2018 Status: F Source: [place] 6:10 PM [facility] REPOSITORY TYPE CODE TESTS RESULT OUT OF RANGE REFERENCE UNITS LAB L100.1000 4.4-11.0 K/mm3 Normal WBC 6.6 LAB L100.1200 4.2-5.4 M/mm3 Normal RBC 4.36 LAB L100.1300 12.0-15.0 g/dl Normal HGB 13.5 LAB L100.1400 37-47 % Normal HCT 40.5 LAB L100.1500 81-99 fL Normal MCV 92.9 LAB L100.1600 27.0-32.0 pg Normal MCH 31.0 LAB L100.1700 32-36 g/gl Normal MCHC 33.3 LAB L100.1810 11.6-14.6 % Normal RDW CV 13.2 LAB L100.1820 35.1-43.9 fl Normal RDW SD 43.7 LAB L100.1900 150-450 K/mm3 Normal PLT 245 LAB L100.2000 6.2-12.0 fl Normal MPV 10.9 LAB L100.2100 47-70 % Normal NEUT% 59.7 LAB L100.2200 19-41 % Normal LY% 32.5 LAB L100.2300 0-10 % Normal MONO% 6.1 LAB L100.2400 0-5 % Normal EO% 1.2 LAB L100.2500 0-1 % Normal BASO% 0.3 LAB L100.2550 0.0-0.9 % Normal IM GRAN % 0.200 Result Comment: IG% - Immature Granulocytes (promyelocytes, myelocytes and metamyelocytes) > 1% indicates that a LEFT SHIFT is Present. LAB L100.2620 2.0-7.7 X10 3/uL Normal Absolute Neut 3.9 LAB L100.2720 0.83-4.51 X10 3/ul Normal Absolute Lymph 2.14 Performed By: #### L100.0100 #### [facility] [address] [place], [place], [address] BASIC METABOLIC Collected: 07/23/2018 Status: F Source: RG PROFILE (BMP) 6:10 PM [facility] REPOSITORY Order Comment: 'TROP' Serial specimen #1, #2, #3, or #4: 1 TYPE CODE TESTS RESULT OUT OF RANGE REFERENCE UNITS LAB L501.0100 74-106 mg/dL Normal GLU 93 Result Comment: Please note revised GLUCOSE reference range effective 2017. LAB L501.1000 7-18 mg/dL High BUN 21 LAB L501.1100 0.55-1.02 mg/dL Normal CREAT,SERUM 0.78 Result Comment: The validity of the calculated GFR AND GFRAA in patients over 70 years has not been determined. Clinical correlation is essential. LAB L501.1110 >60 mL/min Normal EST GFR 79 Result Comment: Non- GFR Calc LAB L501.1115 >60 mL/min Normal EST GFR - AA 95 Result Comment: GFR Calc LAB L501.1255 ml/min Normal Estimated CRCL 53.09 LAB L501.1300 10-20 RATIO High BUN/CRE 27.0 LAB L501.2200 8.5-10 mg/dL Normal .1 CA 9.4 LAB L501.5300 136-14 mmol/L Normal 5 NA 139 LAB L501.5600 3.5-5. mmol/L Normal 1 K 4.4 Result Comment: Slight Hemolysis, Result may be falsely increased. LAB L501.5900 98-107 mmol/L Normal CL 105 LAB L501.6100 21.0-32.0 mmol/L Normal CO2 28.0 LAB L501.6200 5-15 Normal 6 GAP Performed By: #### L500.2500, L501.4010 #### [facility] [address] [place], [place], [address] TROPONIN-I Collected: 07/23/2018 Status: F Source: RG 6:10 PM [facility] REPOSITORY Order Comment: 'TROP' Serial specimen #1, #2, #3, or #4: 1 TYPE CODE TESTS RESULT OUT OF RANGE REFERENCE UNITS LAB L501.4010 <0.045 ng/mL Normal < 0.015 TROPONIN-I Result Comment: TROPONIN-I EXPECTED VALUES <0.045 Negative 0.045 - 0.590 Consistent with Cardiac Damage > OR = 0.600 Critical Value Not every elevated troponin is indicative of [place]. These values should be used with clinical judgement in examining the patient's clinical picture for diagnosis. To establish a diagnosis of [place] versus myocardial injury, there must be a demonstrated rise and/or fall in the troponin values, in addition to ischemic symptoms, EKG changes, new regional wall motion abnormality, and/or angiographical evidence. PLEASE NOTE: REFERENCE RANGES EDITED 18 Performed By: #### L500.2500, L501.4010 #### [facility] [address] [place], [address] CHEST 1 VIEW Observed: 07/23/2018 Status: F Source: [place] 6:10 PM [facility] REPOSITORY [facility] Imaging Services [address] [place] [address] Chest 1 View MR#: [id number] Acct: [id number] Name: PREET WARREN Rep #: [id number] : 1950 F 67 From: Eliceo Shane MD PCP: Tenzin Wise MD Status: REG ER Study: Chest 1 View Date of Exam: 07/23/18 Exam# [id number] Ordering Dr: Mike Prabhakar MD STUDY: X-RAY CHEST REASON FOR EXAM: Female, 67 years old. Cerebrovascular accident workup. TECHNIQUE: Single frontal view of the chest. COMPARISON: None. FINDINGS: A right subclavian catheter is present and the tip cannot be visualized because of underpenetration. The lungs are hyperexpanded with bullous disease in both apices. There is no demonstrated pleural abnormality. There is borderline cardiomegaly. Normal mediastinum and karen. Normal visualized pulmonary arteries. Normal visualized aortic arch and descending thoracic aorta. Normal visualized thoracic spine. Normal visualized ribs, clavicles, and shoulders. There is no demonstrated abnormality of the visualized soft tissue structures of the upper abdomen. RAD/Chest 1 View IMPRESSION: No active or acute cardiopulmonary disease. Electronically Signed: Eliceo Shane MD at 20:18 EST , Service support , CC: Tenzin Wise MD; Mike Prabhakar MD Community Resource Consultant: Signed BRAIN/HEAD WITHOUT Observed: 07/23/2018 Status: F Source: [place] CONTRAST 6:10 PM [facility] REPOSITORY [facility] Imaging Services [address] [place] [address] Brain/Head without Contrast MR#: [id number] Acct: [id number] Name: PREET WARREN Rep #: [id number] : 1950 F 67 From: Ericka Gallo MD PCP: Tenzin Wise MD Status: REG ER Study: Brain/Head without Contrast Date of Exam: 07/23/18 Exam# [id number] Ordering Dr: Mike Prabhakar MD STUDY: CT BRAIN WITHOUT CONTRAST REASON FOR EXAM: Female, 67 years old. Difficulty speaking with ringing in ears. RADIATION DOSAGE (If Supplied By Facility): CTDIvol = ( 44.99 ) mGy, DLP = ( 796.11 ) mGycm TECHNIQUE: Transaxial CT imaging of the brain was performed without administration of intravenous contrast material. Multiplanar reformations are submitted for interpretation. Individualized dose optimization techniques were used for this CT. COMPARISON: Prior comparison studies are not available for review at this time. FINDINGS: Normal soft tissue structures. Normal calvarium. There is mild cerebral atrophy with widening of the extra- axial spaces and ventricular dilatation. There are areas of decreased attenuation within the white matter tracts of the supratentorial brain, consistent with microvascular disease changes. Normal basal ganglia and thalami. Normal brainstem. There is mild cerebellar atrophy. There is no intracranial hemorrhage. There is mild atherosclerotic calcification of the intracranial arteries. Normal visualized paranasal sinuses. CT/Brain/Head without Contrast IMPRESSION: 1. Chronic involutional changes of the brain. 2. No CT evidence of acute intracranial hemorrhage. Electronically Signed: Ericka Gallo MD at 20:39 EST , Service support , CC: Tenzin Wise MD; Mike Prabhakar MD Community Resource Consultant: Signed HEMOGLOBIN A1C Collected: 07/23/2018 Status: F Source: RG 6:10 PM [facility] REPOSITORY TYPE CODE TESTS RESULT OUT OF RANGE REFERENCE UNITS LAB L501.9985 4.2-6.3 % Normal HGB A1C 5.4 Performed By: #### L501.9985 #### [facility] [address] [place], [address] ALLERGIES ALLERGIES DATE TYPE / CODE NAME / CODE REACTION SEVERITY SOURCE 07/23/2018 Drug No Known Unknown [facility] Allergy/4160 Allergies/F00 Hospital 60464(SNOMED [id number](RXNOR Repository CT) M) ENCOUNTERS ENCOUNTERS ADMIT/DISCHARGE ACCOUNT ADMITTING ENCOUNTER LOCATION SOURCE NUMBER CLASS 07/24/2018/ [id number] Agyepong, Inpatient [facility] 8 3 [place] Encounter [facility] ing:PCURoom: Repository [id number]: 1 07/24/2018 [id number] Agyepong, Ambulatory BMSBuilding:B Rg 2 [place] WOODS.[facility] Repository 07/24/2018 [id number] Agyepon, Ambulatory BMSBuilding:B Rg 8 [place] WOODS.[facility] Repository 07/23/2018 [id number] Agyepong, Ambulatory BMSBuilding:B [place] 1 [place] WOODS.[facility] Repository PAYERS PAYERS ENCOUNTER GUARANTOR PAYER SUBSCRIBER SOURCE 07/24/2018 MADELYN S Primary MADELYN S Rg [id number] TR Insurance:ANTHEMPolic SIMCAKDOB: [address] y Number: [id number] Hospital [address]Vxu: (375) [id number] Repository [phone] () Date:[id number] [place] [address]DY: 07/24/2018 Secondary PREET K [place] Insurance:MEDICARE A SIMCAKDOB: [facility] Number: [id number] [facility] [id number] Repository Date:2018-07-23 07/24/2018 Tertiary NOT GIVENUNK [place] Insurance:SELF PAY [facility] Hospital Number: Effective Repository Date:2018-07-23 07/24/2018 MADELYN S Primary MADELYN S Rg [id number] TR Insurance:ANTHEMPolic SIMCAKDOB: [place] [address] Number: [id number] Hospital [id number]: [phone]) [id number] Repository [phone] () Date:[id number] [address]WK: 07/24/2018 Secondary NOT GIVENUNK Rg Insurance:SELF PAY [facility] Hospital Number: Effective Repository Date:2018-07-24 07/24/2018 MADELYN S Primary MADELYN S [place] [id number] TR Insurance:ANTHEMPolic SIMCAKDOB: Community [address] Number: [id number] Hospital [id number]: ([phone]) [id number] Repository [phone] () Date:[id number], [place] [address]BW: 07/24/2018 Secondary NOT GIVENUNK Rg Insurance:SELF PAY [facility] Hospital Number: Effective Repository Date:2018-07-24 07/23/2018 MADELYN S Primary MADELYN S Rg [id number] TR Insurance:ANTHEMPolic SIMCAKDOB: Community [address] Number: [id number] Hospital [id number]: ([phone]) [id number] Repository [phone] () Date:2273-04-61QM [address], [place] [address]AX: 07/23/2018 Secondary NOT GIVENUNK Rg Insurance:SELF PAY [facility] Hospital Number: Effective Repository Date:2018-07-23
== END 2018-07-25 13:38 | disposition home or self-care (01) | DRG 69 ==
LOC: ED 18:47 → PCU 21:03
PROVIDERS: Admitting Provider Hospitalist; Emergency Provider Emergency Medicine; Visit Provider Internal Medicine
DX: G45.9 Transient cerebral ischemic attack, unspecified (principal); I10 Essential (primary) hypertension; I70.0 Atherosclerosis of aorta; I35.0 Nonrheumatic aortic (valve) stenosis; K21.9 Gastro-esophageal reflux disease without esophagitis; F32.9 Major depressive disorder, single episode, unspecified; Z82.3 Family history of stroke; Z90.49 Acquired absence of other specified parts of digestive tract; Z85.038 Personal history of other malignant neoplasm of large intestine; Z87.891 Personal history of nicotine dependence
CPT/HCPCS: 36415; 70450; 70544; 70549; 70551; 71045; 80048; 80061; 82962; 83036; 84484; 85025; 85610; 85730; 93005; 93306; 97802; 99283; A9585; A4216

== ENCOUNTER → 2020-05-27 09:17 | Outpatient (CLI) | payer BC, SELFPAY ==
[2020-05-27 08:58] VITALS: BMI 36.8
[2020-05-28 07:57] LABS: Carcinoembryonic Antigen 1.4 ng/mL (0.0-4.7)
== END ==
PROVIDERS: Referring Provider Surgery; Visit Provider Surgery
DX: Z85.038 Personal history of other malignant neoplasm of large intestine (principal)
CPT/HCPCS: 36415; 82378

== ENCOUNTER → 2022-06-18 | Outpatient (CLI) | payer BC, SELFPAY ==
--- NOTE | 2022-06-18 13:24 | ECHOD_ITS ---
Reason For Study: CHEST PAIN Procedure This was a 2D Doppler, Color Flow transthoracic echocardiogram. Exam performed in department. Left Ventricle Normal LV size. The estimated ejection fraction is 65 %. Unable to assess diastolic dysfunction. No regional wall motion abnormalities noted. Right Ventricle Normal RV size. Normal systolic function. Atria The left atrium is moderately enlarged. Normal right atrium. No doppler evidence for ASD. Mitral Valve There is moderate mitral annular calcification. There is no mitral valve stenosis. No mitral valve insufficiency. Tricuspid Valve There is no tricuspid stenosis. Trivial tricuspid valve insufficiency. Pulmonary artery systolic pressure is 30-35 mmHg. Aortic Valve Moderate diffuse aortic valve thickening. Moderate aortic stenosis. Trivial aortic valve insufficiency. Pulmonic Valve There is no pulmonic valvular stenosis. Trivial pulmonic valve insufficiency. Great Vessels Normal aortic root. Pericardium/Pleural No pericardial effusion. MMode/2D Measurements & Calculations LVIDd: 5.1 cm IVSd: 1.2 cm LVOT diam: 2.2 cm LVIDs: 3.1 cm LVPWd: 1.2 cm LVOT area: 3.9 cm2 RVDd: 2.7 cm FS: 39.1 % Ao root diam: 4.1 cm LAV(MOD-bp): 115.2 ml LA A4 area: 31.7 cm2 LAV(MOD-bp) Indexed: 53.8 ml/m2 LAV(MOD-sp2): 114.5 ml LAV(MOD-sp4): 114.4 ml LA dimension(2D): 4.6 cm RA A4 area: 15.5 cm2 Time Measurements MV dec time: 0.26 sec Doppler Measurements & Calculations MV E max luis alberto: 98.1 cm/sec Lat Peak E' Luis Alberto: 8.1 cm/sec Med Peak E' Luis Alberto: 7.3 cm/sec MV A max luis alberto: 108.6 cm/sec E/E' lat: 12.1 E/E' med: 13.4 MV E/A: 0.90 Ao V2 max: 327.0 cm/sec AI max luis alberto: 381.0 cm/sec LV V1 max: 118.9 cm/sec Ao max P.9 mmHg AI max P.1 mmHg LV V1 max P.7 mmHg Ao V2 mean: 247.5 cm/sec AI dec slope: 198.2 cm/sec2 LV V1 mean P.0 mmHg Ao mean P.9 mmHg AI P1/2t: 563.0 msec LV V1 mean: 97.1 cm/sec Ao V2 VTI: 82.1 cm LV V1 VTI: 31.7 cm KEVIN(I,D): 1.5 cm2 KEVIN(V,D): 1.4 cm2 SV(LVOT): 123.4 ml PA V2 max: 98.9 cm/sec TR max luis alberto: 274.5 cm/sec TR max P.2 mmHg ECHO/Echo Complete Interpretation Summary The estimated ejection fraction is 65 %. Unable to assess diastolic dysfunction. The left atrium is moderately enlarged. Moderate aortic stenosis. Trivial aortic valve insufficiency. Ordering Physician: Khurram Cantu Referring Physician: Khurram Cantu Performed By: Phuong Dorado RDCS, RVT
== END | disposition home or self-care (01) ==
PROVIDERS: PCP Nurse Practitioner Family; Referring Provider Nurse Practitioner Family; Visit Provider Nurse Practitioner Family
DX: R07.9 Chest pain, unspecified (principal)
CPT/HCPCS: 93306